=== PATIENT | male | born 1940 | race African-American/Black ===

== ENCOUNTER 2017-05-20 19:50 | Inpatient (IN) | payer MEDICARE, BC ==
[~2017-05-20] VITALS: Ht 167.6 cm; Wt 97.7 kg
[~2017-05-20 19:50] MED LIST: ACET500T98 PO; ALLO100T64 PO; ASPI81TA3 PO; ATRO2DRO OP; BEN25 PO; BISA-57 PO; CITA20TA11 PO; FINA5TAB PO; FLOMAX PO; FOLI-49 PO; GLUC1VIA7 IM; GLUCOSE GEL PO; HUM100VI8 SC; ISOS30TA PO; LISI-523 PO; MAGN400O4 PO; METO-429 PO; NITR0.4T32 SL; OXYC-281 PO; PANT40TA3 PO; SIMV5TAB31 PO; ZOLP5TAB PO
[2017-05-20 19:54] VITALS: Ht 167.6 cm; Wt 97.7 kg
[2017-05-20] MEDS ORDERED: CEFEPIME 2GM/50 ML (PMX) 50 ML IVPB STA (20:57)
[2017-05-20] MEDS ORDERED: SODIUM CHLORIDE 0.9% 1L BAG IV* STA (20:57)
[2017-05-20] MEDS ORDERED: VANCOMYCIN 1 GM (PMX) 250 ML IVPB ONE (21:00)
[2017-05-20] MEDS ORDERED: SIMV20TA PO (21:27)
[2017-05-20] MEDS ORDERED: TAMS-14 PO (21:27)
[2017-05-20] MEDS ORDERED: OMEP20CA16 PO (21:27)
[2017-05-20] MEDS ORDERED: LOSA25TA5 PO (21:27)
[2017-05-20] MEDS ORDERED: PRAM0.5T PO (21:29)
[2017-05-20] MEDS ORDERED: GABA300C16 PO (21:29)
[2017-05-20] MEDS ORDERED: FURO-110 PO (21:29)
[2017-05-20 21:31] LABS: EOSINOPHILS # 0.3 10^3/ul (0.0-0.5); EOSINOPHILS % 5.9 % (0.0-7.0); HEMATOCRIT 40.6 % (42.0-52.0); HEMOGLOBIN 13.6 g/dl (14.0-18.0); LYMPHOCYTES # 1.5 10^3/ul (0.8-2.9); LYMPHOCYTES % 36.3 % (15.0-51.0); MEAN CORPUSCULAR HEMOGLOBIN 31.8 pg (29.0-33.0); MEAN CORPUSCULAR HGB CONC 33.5 g/dl (32.0-37.0); MEAN CORPUSCULAR VOLUME 94.9 fl (82.0-101.0); MEAN PLATELET VOLUME 11.5 fl (7.4-10.4); MONOCYTE # 0.4 10^3/ul (0.3-0.9); MONOCYTES % 9.7 % (0.0-11.0); NEUTROPHILS % 46.9 % (39.0-77.0); PLATELET COUNT 139 10^3/UL (140-415); POSITIVE DIFF @See below; RED BLOOD COUNT 4.28 10^6/ul (4.70-6.10); RED CELL DISTRIBUTION WIDTH 13.2 % (11.5-14.5); WHITE BLOOD COUNT 4.2 10^3/ul (4.8-10.8)
[2017-05-20] MEDS ORDERED: HUM100IN4 SQ (21:34)
[2017-05-20] MEDS ORDERED: NOVO7030 SC (21:35)
[2017-05-20 21:37] LABS: ADD UMIC YES; UR ASCORBIC ACID NEGATIVE (NEGATIVE); UR BILIRUBIN (Dip) NEGATIVE (NEGATIVE); UR BLOOD (Dip) NEGATIVE (NEGATIVE); UR CLARITY SLIGHTLY CLOUDY (CLEAR); UR COLOR YELLOW (YELLOW); UR GLUCOSE (Dip) NEGATIVE (NEGATIVE); UR KETONES (Dip) NEGATIVE (NEGATIVE); UR LEUKOCYTE ESTERASE (Dip) NEGATIVE Leu/ul (NEGATIVE); UR NITRITE (Dip) NEGATIVE (NEGATIVE); UR RBC 1 /HPF (0-5); UR SPECIFIC GRAVITY (Dip) 1.014 (1.003-1.030); UR TOTAL PROTEIN (Dip) 1+ mg/dl (NEGATIVE); UR UROBILINOGEN (Dip) NEGATIVE (NEGATIVE)
[2017-05-20 21:50] LABS: INR 1.14; PROTIME 14.6 Sec (12.2-14.2); PT RATIO 1.1
[2017-05-20 21:51] LABS: PARTIAL THROMBOPLASTIN TIME 28.6 Sec (25.0-35.0)
--- NOTE | 2017-05-20 23:11 | RADRPT ---
PROCEDURE: XR Chest. CLINICAL INDICATION: Sepsis. TECHNIQUE: Single frontal chest x-ray. COMPARISON: 07/22/2013 FINDINGS: Patient is status post sternotomy. Heart is enlarged.. There is no congestive heart failure.. No fo chris infiltrate is seen. There is 4.2 mm nodular density at the right costophrenic angle not clearly present on prior studies. There is 2 mm unchanged nodular density right mid lung field. There is no pleural effusion. There is no pneumothorax. The osseous structures are unremarkable. IMPRESSION: 1. Cardiomegaly. 2. No CHF or focal infiltrate. 3. 4.2 mm nodular density right costophrenic angle not clearly evident on the prior studies. Unchan ged 2 mm nodular density in the right mid lung field. Lung nodule follow-up recommendations Solid nodules Nodule size: < 4 mm low risk patients: no follow-up needed high risk patients: follow-up at 12 months and if no change, no further imaging needed Nodule size: 4-6 mm low risk patients: follow-up at 12 months and if no change, no further imaging needed high risk patients: initial follow-up CT at 6-12 months and then at 18-24 months if no change Note: newly detected indeterminate nodule in persons 35 years of age or older. low risk patients: minimal or absent history of smoking and or other known risk factors high risk patients: history of smoking or of other known risk factors (e.g. first degree relative wi th lung cancer, or exposure to asbestos, radon, uranium) if a nodule up to 8 mm is partly solid or is ground glass further follow up is required after 24 mon ths to exclude possible slow growing adenocarcinoma (YOHANA) RPTAT: HMVK .Dontrell Webster MD, MD Date Time Electronically viewed and signed by .Dontrell Webster MD, MD on 05/20/2017 23:11 .K/
--- NOTE | 2017-05-20 23:13 | RADRPT ---
PROCEDURE: XR bilateral Foot. CLINICAL INDICATION: Trauma. TECHNIQUE: AP, lateral and oblique views of the bilateral foot was obtained. COMPARISON: There are no similar studies submitted for comparison. 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 N o destructive osseous changes are seen. No acute fracture or subluxation is identified. The right foot is without fracture or subluxation. No destructive osseous changes are seen. There is some soft tissue swelling throughout the right foot. Vascular calcifications are noted within both feet. IMPRESSION: No acute fracture or dislocation. No destructive osseous changes. Please note this does not exclude osteomyelitis. RPTAT: HIKT .Kodi Lopez MD, Date Time Electronically viewed and signed by .Kodi Lopez MD, on 05/20/2017 23:13 .T/
--- NOTE | 2017-05-20 23:17 | ERA ---
ER Documentation Chief Complaint Date/Time DATE: 05/20/17 TIME: 23:15 Chief Complaint diabetic left foot, right foot swelling HPI Patient is a 76-year-old male with coronary disease, hypertension, and diabetes who presents with right foot swelling and redness. He also has an ulcer to the top of the left fourth toe. He has an amputation prevention center patient and he called the [facility] and was told to come to the emergency department. His symptoms started on Tuesday but were worse today. He had subjective fever and sweating. His primary doctor is Dr. Sena Hernandez and his coating and baking operator is Dr. Merrill. ROS All systems reviewed and are negative except as per history of present illness. Medications Home Meds Reported Medications Insulin Isophan/Regular (Humulin 70/30) 100 Units/Ml Susp, 45 UNIT SC AC BREAKFAST DINNER, EA 05/20/17 Hum Insulin NPH/Reg Insulin Hm (Humulin 70/30 Kwikpen) 100 Unit/1 Ml Insuln.pen , 65 UNIT SQ AC BREAKFAST 05/20/17 Gabapentin* (Gabapentin*) 300 Mg Capsule, 300 MG PO TID, #90 CAP 05/20/17 Furosemide* (Lasix*) 20 Mg Tablet, 20 MG PO DAILY, TAB 05/20/17 Pramipexole* (Pramipexole*) 0.5 Mg Tablet, 0.5 MG PO BID, TAB 05/20/17 Losartan Potassium* (Losartan Potassium*) 25 Mg Tablet, 25 MG PO DAILY, TAB 05/20/17 Omeprazole* (Omeprazole*) 20 Mg Capsule.dr, 20 MG PO DAILY, #30 CAP 05/20/17 Simvastatin* (Zocor*) 20 Mg Tablet, 20 MG PO QHS, #30 TAB 05/20/17 Tamsulosin Hcl* (Flomax*) 0.4 Mg Cap.er.24h, 0.4 MG PO DAILY, CAP 05/20/17 Isosorbide Mononitrate* (Imdur*) 30 Mg Tab.sr.24h, 30 MG PO DAILY 07/22/13 Citalopram Hydrobromide* (Celexa*) 20 Mg Tablet, 20 MG PO DAILY 07/22/13 Aspirin (Aspirin) 81 Mg Chew, 81 MG PO DAILY 07/22/13 Allopurinol* (Zyloprim*) 100 Mg Tablet, 100 MG PO DAILY 07/22/13 Metoprolol Tartrate (LOPRESSOR) 50 Mg Tab, 50 MG PO BID 07/22/13 Discontinued Reported Medications Hum Insulin Nph/Reg Insulin Hm (Humulin 70-30 Vial) 100 Units/Ml Vial, 40 UNITS SC AC DINNER 07/22/13 Hum Insulin Nph/Reg Insulin Hm (Humulin 70-30 Vial) 100 Units/Ml Vial, 60 UNITS SC AC BREAKFAST 07/22/13 Folic Acid* (Folic Acid*) 1 Mg Tablet, 1 MG PO DAILY 07/22/13 [Flomax] No Conflict Check, 0.4 MG PO DAILY 07/22/13 Zolpidem Tartrate (Ambien Polo) 5 Mg Tablet, 5 MG PO HS 07/22/13 [Glucose Gel] No Conflict Check, PO PRN 07/22/13 Glucagon* (Glucagen*) 1 Mg Soln, 1 MG IM PRN 07/22/13 Acetaminophen (Tylenol) 500 Mg Tab, 500 MG PO Q 4HRS PRN 07/22/13 Oxycodone Hcl-Acetaminophen* (Percocet*) 1 Tab Tablet, 1 TAB PO PRN 07/22/13 Nitroglycerin* (Nitroglycerin* SL) 0.4 Mg Tab.subl, 0.4 MG SL PRN 07/22/13 Magnesium Hydroxide* (Milk Of Magnesia*) 400 Mg/5 Ml Oral.susp, 30 ML PO HS 07/22/13 Bisacodyl* (Dulcolax*) 5 Mg Tablet.dr, 10 MG PO Q 4HRS PRN 07/22/13 Diphenhydramine Hcl* (Benadryl*) 25 Mg Cap, 25 MG PO Q 4HRS PRN 07/22/13 Atropine Sulfate (Atropine Care) 2 Ml Drops, 2 ML OP BID 07/22/13 Simvastatin* (Zocor*) 5 Mg Tablet, 5 MG PO HS 07/22/13 Lisinopril* (Zestril*) 5 Mg Tablet, 5 MG PO DAILY 07/22/13 Pantoprazole* (Protonix*) 40 Mg Tablet.dr, 40 MG PO DAILY 07/22/13 Finasteride* (Proscar*) 5 Mg Tablet, 5 MG PO daily 07/22/13 Allergies Allergies: Coded Allergies: No Known Allergy (Verified , 05/20/17) PMhx/Soc History of Surgery: Yes (CABG,cholecystectomy) Anesthesia Reaction: Yes (shaking, trembling and confusion) Hx Neurological Disorder: No Hx Respiratory Disorders: No Hx Cardiac Disorders: Yes (htn, block artery2) Hx Psychiatric Problems: No Hx Miscellaneous Medical Probl: Yes (DM,diabetic neuropathy,retinopathy,PVD,L foot ulcer,osteomyelitis) Hx Alcohol Use: No Hx Substance Use: No Hx Tobacco Use: No Smoking Status: Former smoker FmHx Family History: diabetes Physical Exam Vitals Vital Signs Date Time Temp Pulse Resp B/P Pulse Ox O2 Delivery O2 Flow Rate FiO2 05/20/17 19:54 97.7 66 20 123/58 97 Physical Exam Const: No acute distress Head: Atraumatic Eyes: Normal Conjunctiva ENT: Normal External Ears, Nose and Mouth. Neck: Full range of motion..~ No meningismus. Resp: Clear to auscultation bilaterally Cardio: Regular rate and rhythm, no murmurs Abd: Soft, non tender, non distended. Normal bowel sounds Skin: Mild redness and swelling to the right foot, no abscess, small ulcer to the dorsum of the left fourth toe Back: No midline or flank tenderness Ext: No cyanosis, or edema Neur: Awake and alert Psych: Normal Mood and Affect Result Diagram: 05/20/17 2100 Results 24 hrs Laboratory Tests Test 05/20/17 21:00 White Blood Count 4.210^3/ul Red Blood Count 4.2810^6/ul Hemoglobin 13.6g/dl Hematocrit 40.6% Mean Corpuscular Volume 94.9fl Mean Corpuscular Hemoglobin 31.8pg Mean Corpuscular Hemoglobin Concent 33.5g/dl Red Cell Distribution Width 13.2% Platelet Count 97634^3/UL Mean Platelet Volume 11.5fl Neutrophils % 46.9% Lymphocytes % 36.3% Monocytes % 9.7% Eosinophils % 5.9% Basophils % 1.0% Nucleated Red Blood Cells % 0.0/100WBC Neutrophils # 2.010^3/ul Lymphocytes # 1.510^3/ul Monocytes # 0.410^3/ul Eosinophils # 0.310^3/ul Basophils # 0.010^3/ul Nucleated Red Blood Cells # 0.010^3/ul Prothrombin Time 14.6Sec Prothrombin Time Ratio 1.1 INR International Normalized Ratio 1.14 Activated Partial Thromboplast Time 28.6Sec Urine Color YELLOW Urine Clarity SLIGHTLY CLOUDY Urine pH 5.0 Urine Specific [place] 1.014 Urine Ketones NEGATIVEmg/dL Urine Nitrite NEGATIVEmg/dL Urine Bilirubin NEGATIVEmg/dL Urine Urobilinogen NEGATIVEmg/dL Urine Leukocyte Esterase NEGATIVELeu/ul Urine Microscopic RBC 1/HPF Urine Microscopic WBC 3/HPF Urine Hemoglobin NEGATIVEmg/dL Urine Glucose NEGATIVEmg/dL Urine Total Protein 1+mg/dl Lactic Acid Level 1.4mmol/L Current Medications Medications (Trade) Dose Ordered Sig/Angelique Route PRN Reason Start Time Stop Time Status Last Admin Dose Admin Sodium Chloride 3030 ml 3,030 ml BOLUS OVER 2 HOURS STAT IV* 05/20/17 20:57 05/20/17 20:59 DC 05/20/17 21:24 Cefepime HCl 50 ml @ 100 mls/hr ONCE STAT IVPB 05/20/17 20:57 05/20/17 21:26 DC 05/20/17 21:36 Vancomycin HCl (Vancocin) 250 ml @ 125 mls/hr ONCE ONCE IVPB 05/20/17 21:00 05/20/17 22:59 DC 05/20/17 21:38 Ondansetron HCl (Zofran Inj) 4 mg BRIDGE ORDER PRN IV NAUSEA AND/OR VOMITING 05/20/17 23:30 05/21/17 23:29 Acetaminophen (Tylenol Tab) 650 mg ER BRIDGE PRN PO MILD PAIN/FEVER 05/20/17 23:30 05/21/17 23:29 Procedures/MDM EKG read by me: Rate/Rhythm: First-degree AV block with bradycardia at a rate of 59 Intervals: Normal Impression: First-degree AV block with bradycardia Chest x-ray shows a 4.2 cm nodule per radiology. Patient is a 76-year-old male with diabetes who presents with cellulitis and diabetic foot ulcer. He will be given broad-spectrum antibiotics and fluids. I doubt sepsis at this time. The patient will be admitted to a medical surgical bed to the care of Dr. Sena Hernandez his primary doctor. The patient understands the plan and is okay for admission at this time. He would likely benefit from amputation prevention center consultation once he is admitted. Departure Diagnosis: Primary Impression: Cellulitis Qualified Code: L03.115 - Cellulitis of right lower extremity Additional Impressions: Diabetic foot ulcer Qualified Code: E13.621 - Diabetic ulcer of toe of left foot associated with diabetes mellitus of other type, unspecified ulcer stage Foot pain Qualified Code: M79.671 - Pain in both feet Condition: MARGAUX Garcia MD May 20, 2017 23:17
[2017-05-20 23:29] LABS: ALBUMIN 3.2 g/dl (3.3-4.9); BILIRUBIN,DIRECT 0.2 mg/dl (0.00-0.20); BILIRUBIN,INDIRECT 0.5 mg/dl (0-1.1); BILIRUBIN,TOTAL 0.7 mg/dl (0.2-1.3); CALCIUM 7.2 mg/dl (8.4-10.2); CREATININE 5.95 mg/dl (0.61-1.24); POTASSIUM 4.1 mmol/L (3.5-5.1); TOTAL PROTEIN 6.4 g/dl (6.1-8.1)
[2017-05-20] MEDS ORDERED: ACETAMINOPHEN 325 MG TAB PO PRN (23:30)
[2017-05-20] MEDS ORDERED: ONDANSETRON 4 MG INJ IV PRN (23:30)
[2017-05-20 23:58] VITALS: TEMP 98.1
[2017-05-21] VITALS (14 sets, daily range): BP systolic 118–160; BP diastolic 56–79; PULSE 58–94; RESP 18–20
[2017-05-21 00:08] LABS: TROPONIN-I 0.166 ng/ml (0.00-0.12)
[2017-05-21] MEDS: morphine 2 MG INJ IV PRN ×3 (01:08→23:24)
[2017-05-21] MEDS: SOD CHLORIDE 0.45% 1,000 ML IV SCH ×2 (01:33→13:55)
[2017-05-21] MEDS: INSULIN ASPART [NOVOLOG] 3 ML PEN SC SCH ×4 (07:42→20:36)
[2017-05-21 08:11] LABS: CALCIUM 8.4 mg/dl (8.4-10.2); CREATININE 2.03 mg/dl (0.61-1.24); POTASSIUM 4.8 mmol/L (3.5-5.1)
[2017-05-21] MEDS: CITALOPRAM 20 MG TAB PO SCH (08:19)
[2017-05-21] MEDS: METOPROLOL 50 MG TAB PO SCH ×2 (08:19→20:32)
[2017-05-21] MEDS: ASPIRIN 81 MG TAB PO SCH (08:19)
[2017-05-21] MEDS: ALLOPURINOL 100 MG TAB PO SCH (08:19)
[2017-05-21] MEDS: ISOSORBIDE MONONITRATE(SR)30 MG TAB PO SCH (08:20)
[2017-05-21] MEDS: INSULIN ASP PROT/ASPART (70/30) PEN SC SCH ×2 (08:46→17:50)
--- NOTE | 2017-05-21 09:10 | RADRPT ---
PROCEDURE: Renal US. CLINICAL INDICATION: Prostate cancer. Acute renal failure. TECHNIQUE: Multiple sonographic images of the kidneys were obtained. COMPARISON: No prior studies are available for comparison. FINDINGS: The kidneys are well visualized. The right kidney measures 11.0 cm. The left kidney measures 11.3 cm . Normal renal cortical echogenicity. No evidence of shadowing renal calculi. No hydronephrosis. No rmal appearance of the urinary bladder. Enlarged prostate gland measuring 5.4 x 5.0 x 5.6 cm. IMPRESSION: Normal renal ultrasound. Enlarged prostate gland. RPTAT:AAJJ Physician Luis A Date Time Electronically viewed and signed by Physician Luis A on 05/21/2017 09:10 /
--- NOTE | 2017-05-21 13:23 | HP ---
Date/Time of Note Date/Time of Note DATE: 05/21/17 TIME: 13:08 Assessment/Plan VTE Prophylaxis VTE Prophylaxis Intervention: LMWH Lines/Catheters IV Catheter Type (from Nrs): Peripheral IV Assessment/Plan Problems: (1) Sepsis Status: Acute Comment: Patient with fever and shaking chills and markedly elevated BUN/ Creatinine on admission suggestive of sepsis or systemic infection. Most likely source of infection is the right foot cellulitis but will check blood and urine cultures for other source of infections. (2) Acute on chronic renal failure Status: Acute Comment: improving with IVF hydration since ER admission. Continue gentle hydration , his baseline Creatinine is about 1.7. (3) Cellulitis Status: Acute Comment: Patient was given cefepime and vanco in ER with improvement in right foot pain and redness. Will consult ID for antibiotics regiment in this patient with history of osteomyelitis and urosepsis and c. diff colitis. Qualifiers: Site of cellulitis: extremity Site of cellulitis of extremity: lower extremity Laterality: right Qualified Code: L03.115 - Cellulitis of right lower extremity (4) Foot swelling Status: Acute Comment: Check venous doppler today . Keep patient on Lovenox for now. (5) Diabetic foot ulcer Status: Acute Comment: small ulcer on left 2nd toe, does not appear to be infected. Will consult amputation prevention center on Tuesday for wound care. Qualifiers: Diabetic foot ulcer location: toe Diabetes mellitus type: other specified (including KELLEE) Laterality: left Non-pressure ulcer stage: unspecified non- pressure ulcer stage Qualified Code: E13.621 - Diabetic ulcer of toe of left foot associated with diabetes mellitus of other type, unspecified ulcer stage HPI/ROS Admit Date/Time Admit Date/Time May 20, 2017 at 23:12 Hx of Present Illness 76 year old male with diabetes, coronary artery disease, chronic renal failure, prostate cancer and peripheral vascular disease s/p toe amputations has been having progressive left foot swelling for the past 3 days , then intermittent fever and shaking chills . Patient was brought to [facility] ER where he was noted to have right foot swelling and redness and acute renal failure as well as elevated troponins. He is admitted for sepsis, probably due to right foot cellulitis and renal failure and rule out [place]. ROS Constitutional: chills Eyes: no complaints ENT: no complaints Respiratory: no complaints Cardiovascular: no complaints Gastrointestinal: no complaints Genitourinary: no complaints Musculoskeletal: swelling Neurologic: no complaints Endocrine: no complaints Lymphatic: no complaints PMH/Family/Social Past Medical History Medical History: angina, cancer, coronary artery disease, diabetes, high cholesterol, hypertension, renal disease Past Surgical History Past Surgical Hx: cholecystectomy, coronary bypass surgery, other (Left 3rd and 4th toe amputation) Family History Significant Family History: diabetes Social History Alcohol Use: none Smoking Status: Never smoker Drug Use: none Exam/Review of Systems Vital Signs Vitals Vital Signs Date Time Temp Pulse Resp B/P Pulse Ox O2 Delivery O2 Flow Rate FiO2 05/21/17 12:23 98.0 67 18 118/56 98 05/21/17 00:20 Room Air Intake and Output 05/20/17 05/20/17 05/21/17 15:00 23:00 07:00 Intake Total 280 ml Output Total 400 ml Balance -120 ml Exam Constitutional: alert, oriented Psych: nl mood/affect Head: atraumatic, normocephalic Eyes: nl conjunctiva, nl sclera, other (mild exophthalmos) ENMT: nl external ears & nose Neck: non-tender, supple Respiratory: clear to auscultation, normal air movement Cardiovascular: regular rate and rhythm Gastrointestinal: non-tender, soft Musculoskeletal: other (Right foot and ankle with marked edema and mild warmth / redness. Left foot s/p 3rd and 4th toe amputation with 2mm ulceration on 2nd toe.) Labs Result Diagram: 05/20/17 2100 05/21/17 0712 Medications Medications Current Medications Sodium Chloride (1/2 NS) 1,000 ml @ 70 mls/hr [id number] IV Last administered on 05/21/17 01:33; Admin Dose 70 MLS/HR; Start 05/21/17 at 00:30 Allopurinol (Zyloprim) 100 mg DAILY PO Last administered on 05/21/17 08:19; Admin Dose 100 MG; Start 05/21/17 at 09:00 Aspirin (Aspirin) 81 mg DAILY PO Last administered on 05/21/17 08:19; Admin Dose 81 MG; Start 05/21/17 at 09:00 Citalopram Hydrobromide (Celexa) 20 mg DAILY PO Last administered on 05/21/17 08:19; Admin Dose 20 MG; Start 05/21/17 at 09:00 Isosorbide Mononitrate (Imdur) 30 mg DAILY PO Last administered on 05/21/17 08 :20; Admin Dose 30 MG; Start 05/21/17 at 09:00 Metoprolol Tartrate (Lopressor) 50 mg BID PO Last administered on 05/21/17 08: 19; Admin Dose 50 MG; Start 05/21/17 at 09:00 Tamsulosin HCl (Flomax) 0.4 mg DAILY@21 PO ; Start 05/21/17 at 21:00 Morphine Sulfate (morphine) 0.5 mg Q6H PRN IV PAIN Last administered on 01:08; Admin Dose 0.5 MG; Start 05/21/17 at 01:00 ANJEL GALLEGOS MD May 21, 2017 13:19
[2017-05-21] MEDS ORDERED: GLUCOSE GEL 15 GRAM TUBE PO PRN ×2 (14:00)
[2017-05-21] MEDS ORDERED: DEXTROSE 50% 50 ML SYRINGE IV PRN ×2 (14:00)
[2017-05-21] MEDS ORDERED: GLUCOSE GEL 15 GRAM TUBE BUCCAL PRN (14:00)
[2017-05-21] MEDS ORDERED: GLUCAGON 1 MG INJ IM PRN (14:00)
[2017-05-21] MEDS: ENOXAPARIN 30 MG/0.3 ML SYG SC SCH (14:00)
--- NOTE | 2017-05-21 15:22 | CONS ---
Date/Time of Note Date/Time of Note DATE: 05/21/17 TIME: 15:19 Assessment/Plan Assessment/Plan Additional Assessment/Plan Impression/Recommendation: # Probable cellulitis # Elevated troponin- trivial elevation without angina or dynamic ECG changes. Likely due to underlying issues and CKD without ACS. # Given numerous RF would consider pt having underlying CAD # PAD # DM # CKD/REGINO # HTN # Obesity >> await follow up troponin >> Echo >> cardiac meds >> will need to avoid ACEi/ARB and track Cr >> weight loss >> ASA >> Statin >> BP control Consultation Date/Type/Reason Admit Date/Time May 20, 2017 at 23:12 Type of Consultation: cardiology Reason for Consultation elevated troponin Eyes: no complaints ENT: no complaints Respiratory: no complaints Cardiovascular: no complaints Gastrointestinal: no complaints Genitourinary: no complaints Musculoskeletal: swelling Neurologic: no complaints Lymphatic: no complaints Psychological: nl mood/affect Past Medical History Medical History: angina, cancer, coronary artery disease, diabetes, high cholesterol, hypertension, renal disease Past Surgical History Past Surgical Hx: cholecystectomy, coronary bypass surgery, other (Left 3rd and 4th toe amputation) Social History Alcohol Use: none Smoking Status: Never smoker Drug Use: none Exam/Review of Systems Vital Signs Vitals Vital Signs Date Time Temp Pulse Resp B/P Pulse Ox O2 Delivery O2 Flow Rate FiO2 05/21/17 12:23 98.0 67 18 118/56 98 05/21/17 00:20 Room Air Intake and Output 05/20/17 05/20/17 05/21/17 15:00 23:00 07:00 Intake Total 280 ml Output Total 400 ml Balance -120 ml Exam Constitutional: alert, obese, oriented, well developed Psych: nl mood/affect, no complaints Head: normocephalic Eyes: EOMI, nl conjunctiva ENMT: nl external ears & nose Neck: non-tender, supple, No jvd Respiratory: clear to auscultation, normal air movement Cardiovascular: other (poor distal pulse, distal surgery WH), regular rate and rhythm, No S3 Gastrointestinal: non-tender, soft, No hepatomegaly, No splenomegaly Neurological: BRIDGE SAW OPERATOR II-XII intact Results Result Diagram: 05/20/17 2100 05/21/17 0712 Results 24 hrs Laboratory Tests Test 05/20/17 21:00 05/20/17 22:36 05/21/17 00:36 05/21/17 02:41 White Blood Count 4.2 L Red Blood Count 4.28 L Hemoglobin 13.6 L Hematocrit 40.6 L Mean Corpuscular Volume 94.9 Mean Corpuscular Hemoglobin 31.8 Mean Corpuscular Hemoglobin Concent 33.5 Red Cell Distribution Width 13.2 Platelet Count 139 L Mean Platelet Volume 11.5 H Neutrophils % 46.9 Lymphocytes % 36.3 Monocytes % 9.7 Eosinophils % 5.9 Basophils % 1.0 Nucleated Red Blood Cells % 0.0 Neutrophils # 2.0 Lymphocytes # 1.5 Monocytes # 0.4 Eosinophils # 0.3 Basophils # 0.0 Nucleated Red Blood Cells # 0.0 Prothrombin Time 14.6 H Prothrombin Time Ratio 1.1 INR International Normalized Ratio 1.14 Activated Partial Thromboplast Time 28.6 Urine Color YELLOW Urine Clarity SLIGHTLY CLOUDY A Urine pH 5.0 Urine Specific [place] 1.014 Urine Ketones NEGATIVE Urine Nitrite NEGATIVE Urine Bilirubin NEGATIVE Urine Urobilinogen NEGATIVE Urine Leukocyte Esterase NEGATIVE Urine Microscopic RBC 1 Urine Microscopic WBC 3 Urine Hemoglobin NEGATIVE Urine Glucose NEGATIVE Urine Total Protein 1+ H Lactic Acid Level 1.4 0.9 1.5 Sodium Level 138 Potassium Level 4.1 Chloride Level 110 Carbon Dioxide Level 14 L Anion Gap 18 H Blood Urea Nitrogen 81 H Creatinine 5.95 H Glucose Level 210 Calcium Level 7.2 L Total Bilirubin 0.7 Direct Bilirubin 0.20 Indirect Bilirubin 0.5 Aspartate Amino Transf (AST/SGOT) 105 H Alanine Aminotransferase (ALT/SGPT) 33 Alkaline Phosphatase 81 Troponin I 0.166 *H Total Protein 6.4 Albumin 3.2 L Globulin 3.20 Albumin/Globulin Ratio 1.00 Test 05/21/17 07:12 05/21/17 07:31 05/21/17 08:43 05/21/17 11:41 Erythrocyte Sedimentation Rate 12 Sodium Level 143 Potassium Level 4.8 Chloride Level 113 H Carbon Dioxide Level 24 # Anion Gap 11 # Blood Urea Nitrogen 38 #H Creatinine 2.03 #H Glucose Level 116 # Hemoglobin A1c 7.4 H Calcium Level 8.4 Troponin I 0.019 Bedside Glucose 118 114 170 Medications Medications Current Medications Sodium Chloride (1/2 NS) 1,000 ml @ 70 mls/hr [id number] IV Last administered on 05/21/17t 13:55; Admin Dose 70 MLS/HR; Start 05/21/17 at 00:30 Allopurinol (Zyloprim) 100 mg DAILY PO Last administered on 05/21/17 08:19; Admin Dose 100 MG; Start 05/21/17 at 09:00 Aspirin (Aspirin) 81 mg DAILY PO Last administered on 05/21/17 08:19; Admin Dose 81 MG; Start 05/21/17 at 09:00 Citalopram Hydrobromide (Celexa) 20 mg DAILY PO Last administered on 05/21/17 08:19; Admin Dose 20 MG; Start 05/21/17 at 09:00 Isosorbide Mononitrate (Imdur) 30 mg DAILY PO Last administered on 05/21/17 08 :20; Admin Dose 30 MG; Start 05/21/17 at 09:00 Metoprolol Tartrate (Lopressor) 50 mg BID PO Last administered on 05/21/17 08: 19; Admin Dose 50 MG; Start 05/21/17 at 09:00 Tamsulosin HCl (Flomax) 0.4 mg DAILY@21 PO ; Start 05/21/17 at 21:00 Morphine Sulfate (morphine) 0.5 mg Q6H PRN IV PAIN Last administered on 01:08; Admin Dose 0.5 MG; Start 05/21/17 at 01:00 Enoxaparin Sodium (Lovenox) 30 mg DAILY SC Last administered on 05/21/17 14:00 ; Admin Dose 30 MG; Start 05/21/17 at 14:00 Miscellaneous Information 1 ea NOTE XX ; Start 05/21/17 at 14:00 Glucose (Glutose) 15 gm Q15M PRN PO DECREASED GLUCOSE; Start 05/21/17 at 14:00 Glucose (Glutose) 22.5 gm Q15M PRN PO DECREASED GLUCOSE; Start 05/21/17 at 14: 00 Dextrose (D50w Syringe) 25 ml Q15M PRN IV DECREASED GLUCOSE; Start 05/21/17 at 14:00 Dextrose (D50w Syringe) 50 ml Q15M PRN IV DECREASED GLUCOSE; Start 05/21/17 at 14:00 Glucagon (Glucagen) 1 mg Q15M PRN IM DECREASED GLUCOSE; Start 05/21/17 at 14:00 Glucose (Glutose) 15 gm Q15M PRN BUCCAL DECREASED GLUCOSE; Start 05/21/17 at 14 :00 J LUIS KAHN MD May 21, 2017 15:22
--- NOTE | 2017-05-21 15:42 | RADRPT ---
PROCEDURE: US Lower extremity Venous. CLINICAL INDICATION: Right leg edema TECHNIQUE: Multiple sonographic images of the right lower extremity deep venous system was obtaine d utilizing grayscale, color-flow, compressive sonography and doppler imaging with augmentation. Th e images were reviewed on a PACS workstation. COMPARISON: None. FINDINGS: There is normal compressibility and flow within the right common femoral, femoral, posterior tibial, peroneal and popliteal veins. RPTAT: AA IMPRESSION: No sonographic evidence for deep venous thrombosis. .Bryant Rodriguez MD, MD Date Time Electronically viewed and signed by .Bryant Rodriguez MD, on 05/21/2017 15:41 .S/
[2017-05-21] MEDS: ATORVASTATIN 40 MG TAB PO SCH (20:31)
[2017-05-21] MEDS: TAMSULOSIN (SR) 0.4 MG CAP PO SCH (20:32)
[2017-05-22] VITALS (14 sets, daily range): BP systolic 129–194; BP diastolic 56–84; PULSE 47–72; RESP 18–19
[2017-05-22] MEDS: SOD CHLORIDE 0.45% 1,000 ML IV SCH (04:58)
[2017-05-22] MEDS: morphine 2 MG INJ IV PRN (07:20)
[2017-05-22] MEDS: INSULIN ASPART [NOVOLOG] 3 ML PEN SC SCH ×4 (07:55→20:50)
[2017-05-22] MEDS: ALLOPURINOL 100 MG TAB PO SCH (08:19)
[2017-05-22] MEDS: ASPIRIN 81 MG TAB PO SCH (08:19)
[2017-05-22] MEDS: CITALOPRAM 20 MG TAB PO SCH (08:20)
[2017-05-22] MEDS: METOPROLOL 50 MG TAB PO SCH (08:20)
[2017-05-22] MEDS: ISOSORBIDE MONONITRATE(SR)30 MG TAB PO SCH (08:20)
[2017-05-22] MEDS: ENOXAPARIN 30 MG/0.3 ML SYG SC SCH (08:22)
[2017-05-22] MEDS: INSULIN ASP PROT/ASPART (70/30) PEN SC SCH ×2 (08:23→17:44)
[2017-05-22] MEDS ORDERED: FUROSEMIDE 20 MG INJ IV ONE (09:30)
[2017-05-22 09:40] LABS: BASOPHILS % 0.9 % (0.0-2.0); EOSINOPHILS # 0.3 10^3/ul (0.0-0.5); HEMATOCRIT 38.8 % (42.0-52.0); LYMPHOCYTES % 29.6 % (15.0-51.0); MEAN CORPUSCULAR HEMOGLOBIN 31.8 pg (29.0-33.0); MEAN CORPUSCULAR HGB CONC 33.5 g/dl (32.0-37.0); MEAN CORPUSCULAR VOLUME 94.9 fl (82.0-101.0); MEAN PLATELET VOLUME 11.9 fl (7.4-10.4); MONOCYTE # 0.5 10^3/ul (0.3-0.9); MONOCYTES % 14.1 % (0.0-11.0); NEUTROPHIL # 1.6 10^3/ul (1.6-7.5); NEUTROPHILS % 46.8 % (39.0-77.0); PLATELET COUNT 122 10^3/UL (140-415); RED BLOOD COUNT 4.09 10^6/ul (4.70-6.10); RED CELL DISTRIBUTION WIDTH 13.3 % (11.5-14.5); WHITE BLOOD COUNT 3.5 10^3/ul (4.8-10.8)
[2017-05-22 09:50] LABS: CALCIUM 9.2 mg/dl (8.4-10.2); CREATININE 1.72 mg/dl (0.61-1.24); POTASSIUM 4.9 mmol/L (3.5-5.1)
--- NOTE | 2017-05-22 09:50 | RADRPT ---
PROCEDURE: XR Chest. CLINICAL INDICATION: Dyspnea TECHNIQUE: Anterior chest x-ray. COMPARISON: 07/22/2013 FINDINGS: 4 mm calcified nodule in the right upper lung zone is unchanged from previous exam and is likely layo ign. Median sternotomy wires are unchanged from previous exam. The lungs are clear. No pleural effusion identified. There is no evidence of pneumothorax. There is atherosclerotic calcification of the aorta. The cardiomediastinal silhouette is unremarkabl e. The soft tissues are normal. Osseous structures are unremarkable. IMPRESSION: 1. No acute disease is seen in the chest. No significant change from previous exam. RPTAT: QQ .Shankar Dickey MD, MD Date Time Electronically viewed and signed by .Shankar Dickey MD, on 05/22/2017 09:50 .M/
--- NOTE | 2017-05-22 14:15 | CONS ---
Date/Time of Note Date/Time of Note DATE: 05/22/17 TIME: 14:11 Assessment/Plan Assessment/Plan Additional Assessment/Plan Impression/Recommendation: # Probable cellulitis # Elevated troponin- trivial elevation without angina or dynamic ECG changes. Likely due to underlying issues and CKD without ACS. # Given numerous RF would consider pt having underlying CAD # PAD # DM # CKD/REGINO- improving Cr # HTN # Obesity >> Echo >> Optimize cardiac meds >> will need to avoid ACEi/ARB and track Cr however will likely restart tomorrow if Cr stable after diuresis >> weight loss >> ASA >> Statin >> BP control Consultation Date/Type/Reason Admit Date/Time May 20, 2017 at 23:12 Initial Consult Date Type of Consultation: cardiology 24 HR Interval Summary Free Text/Dictation Overall pt has been doing well. He has not had any fevers. He has an appt with wound care this coming week as well. No Cp or palpitations. Mild SOB Exam/Review of Systems Vital Signs Vitals Vital Signs Date Time Temp Pulse Resp B/P Pulse Ox O2 Delivery O2 Flow Rate FiO2 05/22/17 13:41 98.0 83 18 148/72 98 05/21/17 00:20 Room Air Intake and Output 05/21/17 05/21/17 05/22/17 15:00 23:00 07:00 Intake Total 1940 ml 1480 ml Output Total 1700 ml 800 ml Balance 240 ml 680 ml Exam Constitutional: alert, oriented, well developed Head: normocephalic Eyes: nl conjunctiva ENMT: nl external ears & nose Neck: jvd (mod elevated) Respiratory: clear to auscultation, diminished breath sounds Cardiovascular: edema (mild B LE pitting edema), nl pulses, regular rate and rhythm Gastrointestinal: soft Musculoskeletal: nl extremities to inspection Neurological: [employer] II-XII intact Results Result Diagram: 05/22/17 0542 05/22/17 0542 Results 24 hrs Laboratory Tests Test 05/21/17 14:34 05/21/17 16:52 05/21/17 20:35 05/22/17 05:42 Troponin I < 0.012 Bedside Glucose 71 89 White Blood Count 3.5 L Red Blood Count 4.09 L Hemoglobin 13.0 L Hematocrit 38.8 L Mean Corpuscular Volume 94.9 Mean Corpuscular Hemoglobin 31.8 Mean Corpuscular Hemoglobin Concent 33.5 Red Cell Distribution Width 13.3 Platelet Count 122 L Mean Platelet Volume 11.9 H Neutrophils % 46.8 Lymphocytes % 29.6 Monocytes % 14.1 H Eosinophils % 8.0 H Basophils % 0.9 Nucleated Red Blood Cells % 0.0 Neutrophils # 1.6 Lymphocytes # 1.0 Monocytes # 0.5 Eosinophils # 0.3 Basophils # 0.0 Nucleated Red Blood Cells # 0.0 Sodium Level 142 Potassium Level 4.9 Chloride Level 110 Carbon Dioxide Level 27 Anion Gap 10 Blood Urea Nitrogen 30 H Creatinine 1.72 H Glucose Level 94 Calcium Level 9.2 Test 05/22/17 05:46 05/22/17 08:17 05/22/17 11:59 Troponin I 0.021 Bedside Glucose 121 108 Medications Medications Current Medications Allopurinol (Zyloprim) 100 mg DAILY PO Last administered on 05/22/17 08:19; Admin Dose 100 MG; Start 05/21/17 at 09:00 Aspirin (Aspirin) 81 mg DAILY PO Last administered on 05/22/17 08:19; Admin Dose 81 MG; Start 05/21/17 at 09:00 Citalopram Hydrobromide (Celexa) 20 mg DAILY PO Last administered on 05/22/17 08:20; Admin Dose 20 MG; Start 05/21/17 at 09:00 Isosorbide Mononitrate (Imdur) 30 mg DAILY PO Last administered on 05/22/17 08 :20; Admin Dose 30 MG; Start 05/21/17 at 09:00 Metoprolol Tartrate (Lopressor) 50 mg BID PO Last administered on 05/22/17 08: 20; Admin Dose 50 MG; Start 05/21/17 at 09:00 Tamsulosin HCl (Flomax) 0.4 mg DAILY@21 PO Last administered on 05/21/17 20:32 ; Admin Dose 0.4 MG; Start 05/21/17 at 21:00 Morphine Sulfate (morphine) 0.5 mg Q6H PRN IV PAIN Last administered on 07:20; Admin Dose 0.5 MG; Start 05/21/17 at 01:00 Enoxaparin Sodium (Lovenox) 30 mg DAILY SC Last administered on 05/22/17 08:22 ; Admin Dose 30 MG; Start 05/21/17 at 14:00 Miscellaneous Information 1 ea NOTE XX ; Start 05/21/17 at 14:00 Glucose (Glutose) 15 gm Q15M PRN PO DECREASED GLUCOSE; Start 05/21/17 at 14:00 Glucose (Glutose) 22.5 gm Q15M PRN PO DECREASED GLUCOSE; Start 05/21/17 at 14: 00 Dextrose (D50w Syringe) 25 ml Q15M PRN IV DECREASED GLUCOSE; Start 05/21/17 at 14:00 Dextrose (D50w Syringe) 50 ml Q15M PRN IV DECREASED GLUCOSE; Start 05/21/17 at 14:00 Glucagon (Glucagen) 1 mg Q15M PRN IM DECREASED GLUCOSE; Start 05/21/17 at 14:00 Glucose (Glutose) 15 gm Q15M PRN BUCCAL DECREASED GLUCOSE; Start 05/21/17 at 14 :00 Atorvastatin Calcium (Lipitor) 40 mg HS PO Last administered on 05/21/17t 20:31 ; Admin Dose 40 MG; Start 05/21/17 at 21:00 J LUIS KAHN MD May 22, 2017 14:15
[2017-05-22] MEDS ORDERED: VANCOMYCIN IV PER PHARMACY XX SCH (14:30)
[2017-05-22] MEDS ORDERED: CEFEPIME 1GM/50 ML (PMX) 50 ML IVPB SCH (15:00)
--- NOTE | 2017-05-22 15:22 | CONS ---
Date/Time of Note Date/Time of Note DATE: 05/22/17 TIME: 15:21 Assessment/Plan Assessment/Plan Chief Complaint/Hosp Course Patient is alert denies pain looks comfortable, he is afebrile Temperature 98 pulse 57 respirations 18 blood pressure 148/72 saturation 98% WBC 3.5 H&H 13 and 38.8 platelets 122 no shift BUN 30 creatinine 1.72 Antimicrobials: Vancomycin cefepime Microbiology: Blood and urine culture negative Diagnostics: Ultrasound of right lower extremity revealed no DVT Chest x-ray this morning revealed no acute disease Renal ultrasound was normal with enlarged prostate gland Physical examination: This is a chronically ill-appearing elderly man who is alert in no distress. Head atraumatic normocephalic sclerae nonicteric. Neck is supple chest rise symmetrical breath sounds clear. Heart: S1-S2. 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 Right foot swelling, no evidence of infection 2. Acute on chronic kidney disease 3. Diabetes 4. Legally blind 5. History of CABG in 2010 Plan: Patient is stable, right lower extremity does not look infected, we are going to discontinue antibiotics and observe him. Problems: Consultation Date/Type/Reason Admit Date/Time May 20, 2017 at 23:12 Initial Consult Date Type of Consultation: ID Exam/Review of Systems Vital Signs Vitals Vital Signs Date Time Temp Pulse Resp B/P Pulse Ox O2 Delivery O2 Flow Rate FiO2 05/22/17 13:41 98.0 83 18 148/72 98 05/21/17 00:20 Room Air Intake and Output 05/21/17 05/21/17 05/22/17 15:00 23:00 07:00 Intake Total 1940 ml 1480 ml Output Total 1700 ml 800 ml Balance 240 ml 680 ml Results Result Diagram: 05/22/17 0542 05/22/17 0542 Results 24 hrs Laboratory Tests Test 05/21/17 16:52 05/21/17 20:35 05/22/17 05:42 05/22/17 05:46 Bedside Glucose 71 89 White Blood Count 3.5 L Red Blood Count 4.09 L Hemoglobin 13.0 L Hematocrit 38.8 L Mean Corpuscular Volume 94.9 Mean Corpuscular Hemoglobin 31.8 Mean Corpuscular Hemoglobin Concent 33.5 Red Cell Distribution Width 13.3 Platelet Count 122 L Mean Platelet Volume 11.9 H Neutrophils % 46.8 Lymphocytes % 29.6 Monocytes % 14.1 H Eosinophils % 8.0 H Basophils % 0.9 Nucleated Red Blood Cells % 0.0 Neutrophils # 1.6 Lymphocytes # 1.0 Monocytes # 0.5 Eosinophils # 0.3 Basophils # 0.0 Nucleated Red Blood Cells # 0.0 Sodium Level 142 Potassium Level 4.9 Chloride Level 110 Carbon Dioxide Level 27 Anion Gap 10 Blood Urea Nitrogen 30 H Creatinine 1.72 H Glucose Level 94 Calcium Level 9.2 Troponin I 0.021 Test 05/22/17 08:17 05/22/17 11:59 Bedside Glucose 121 108 Medications Medications Current Medications Allopurinol (Zyloprim) 100 mg DAILY PO Last administered on 05/22/17 08:19; Admin Dose 100 MG; Start 05/21/17 at 09:00 Aspirin (Aspirin) 81 mg DAILY PO Last administered on 05/22/17 08:19; Admin Dose 81 MG; Start 05/21/17 at 09:00 Citalopram Hydrobromide (Celexa) 20 mg DAILY PO Last administered on 05/22/17 08:20; Admin Dose 20 MG; Start 05/21/17 at 09:00 Isosorbide Mononitrate (Imdur) 30 mg DAILY PO Last administered on 05/22/17 08 :20; Admin Dose 30 MG; Start 05/21/17 at 09:00 Metoprolol Tartrate (Lopressor) 50 mg BID PO Last administered on 05/22/17 08: 20; Admin Dose 50 MG; Start 05/21/17 at 09:00 Tamsulosin HCl (Flomax) 0.4 mg DAILY@21 PO Last administered on 05/21/17 20:32 ; Admin Dose 0.4 MG; Start 05/21/17 at 21:00 Morphine Sulfate (morphine) 0.5 mg Q6H PRN IV PAIN Last administered on 07:20; Admin Dose 0.5 MG; Start 05/21/17 at 01:00 Enoxaparin Sodium (Lovenox) 30 mg DAILY SC Last administered on 05/22/17 08:22 ; Admin Dose 30 MG; Start 05/21/17 at 14:00 Miscellaneous Information 1 ea NOTE XX ; Start 05/21/17 at 14:00 Glucose (Glutose) 15 gm Q15M PRN PO DECREASED GLUCOSE; Start 05/21/17 at 14:00 Glucose (Glutose) 22.5 gm Q15M PRN PO DECREASED GLUCOSE; Start 05/21/17 at 14: 00 Dextrose (D50w Syringe) 25 ml Q15M PRN IV DECREASED GLUCOSE; Start 05/21/17 at 14:00 Dextrose (D50w Syringe) 50 ml Q15M PRN IV DECREASED GLUCOSE; Start 05/21/17 at 14:00 Glucagon (Glucagen) 1 mg Q15M PRN IM DECREASED GLUCOSE; Start 05/21/17 at 14:00 Glucose (Glutose) 15 gm Q15M PRN BUCCAL DECREASED GLUCOSE; Start 05/21/17 at 14 :00 Atorvastatin Calcium (Lipitor) 40 mg HS PO Last administered on 05/21/17 20:31 ; Admin Dose 40 MG; Start 05/21/17 at 21:00 Hydralazine HCl (Apresoline) 25 mg TID PO ; Start 05/22/17 at 21:00; Status UNV Gabapentin (Neurontin) 300 mg TID PO ; Start 05/22/17 at 21:00 Losartan Potassium (Cozaar) 25 mg DAILY PO ; Start 05/23/17 at 09:00 Pramipexole (Mirapex) 0.5 mg BID PO ; Start 05/22/17 at 21:00 Pantoprazole 40 mg 40 mg DAILY@06 PO ; Start 05/23/17 at 06:00 Cefepime HCl 50 ml @ 100 mls/hr Q24H IVPB Last administered on 05/22/17 15:16 ; Admin Dose 100 MLS/HR; Start 05/22/17 at 15:00 Vancomycin HCl 750 mg/Sodium Chloride 150 ml @ 100 mls/hr Q24H IVPB ; Start at 17:00 Vancomycin HCl/ Sodium Chloride (Vancocin/NS) 250 ml @ 83.333 mls/ hr ONCE ONCE IVPB ; Start 05/22/17 at 16:00; Stop 05/22/17 at 18:59 MURPHY WILKES NP May 22, 2017 15:22
[2017-05-22] MEDS ORDERED: VANCOMYCIN 1.5 GM in SOD CHLORIDE 0.9% 250 ML IVPB ONE (16:00)
[2017-05-22] MEDS: FUROSEMIDE 20 MG INJ IV SCH (16:34)
--- NOTE | 2017-05-22 18:27 | PN ---
Date/Time of Note Date/Time of Note DATE: 05/22/17 TIME: 18:02 Assessment/Plan VTE Prophylaxis VTE Prophylaxis Intervention: LMWH Lines/Catheters IV Catheter Type (from Nrs): Peripheral IV Assessment/Plan Problems: (1) Acute on chronic renal failure Status: Resolved Comment: Improved back to baseline chronic renal disease. Will d/c IVF. Resume lasix, losartan, celexa, statin, and PPI and follow bmp . (2) Foot swelling Status: Acute Comment: Venous doppler negative for DVT. Edema improving with diuresis, may have been due to ARF. Stop antibiotics and continue to monitor. (3) Sepsis Status: Resolved Comment: No fever or chills now. Await blood and urine culture result. (4) Hypertension Status: Chronic Comment: Still has episodic increased bp on metoprolol. Will check 24 hour metanephrines today but hopefully bp control will be better once patient starts back on losartan tomorrow. Hydralazine is causing nausea and clonidine may exacerbate his ongoing bradycardia form metoprolol so will use short acting nifedipine for breakthrough elevation in bp (5) Bradycardia Status: Chronic Comment: related to metoprolol. Asymptomatic now. Subjective 24 Hr Interval Summary Free Text/Dictation Patient had nausea after receiving hydralazine today, otherwise feels better. No chills , no feet pain. Exam/Review of Systems Vital Signs Vitals Vital Signs Date Time Temp Pulse Resp B/P Pulse Ox O2 Delivery O2 Flow Rate FiO2 05/22/17 16:45 98.0 59 18 154/75 98 05/21/17 00:20 Room Air Intake and Output 05/21/17 05/21/17 05/22/17 15:00 23:00 07:00 Intake Total 1940 ml 1480 ml Output Total 1700 ml 800 ml Balance 240 ml 680 ml Exam Constitutional: alert, oriented Head: atraumatic, normocephalic Eyes: nl conjunctiva, nl sclera ENMT: mucosa pink and moist, nl external ears & nose Respiratory: clear to auscultation, normal air movement Cardiovascular: other (Bradycardic, regular rhythm) Gastrointestinal: non-tender, soft Extremities: other (trace nonpitting edema of bilateral ankles, no erythema.) Results Result Diagram: 05/22/17 0542 05/22/17 0542 Results 24 hrs Laboratory Tests Test 05/21/17 20:35 10/8/17 05:42 05/22/17 05:46 05/22/17 08:17 Bedside Glucose 89 121 White Blood Count 3.5 L Red Blood Count 4.09 L Hemoglobin 13.0 L Hematocrit 38.8 L Mean Corpuscular Volume 94.9 Mean Corpuscular Hemoglobin 31.8 Mean Corpuscular Hemoglobin Concent 33.5 Red Cell Distribution Width 13.3 Platelet Count 122 L Mean Platelet Volume 11.9 H Neutrophils % 46.8 Lymphocytes % 29.6 Monocytes % 14.1 H Eosinophils % 8.0 H Basophils % 0.9 Nucleated Red Blood Cells % 0.0 Neutrophils # 1.6 Lymphocytes # 1.0 Monocytes # 0.5 Eosinophils # 0.3 Basophils # 0.0 Nucleated Red Blood Cells # 0.0 Sodium Level 142 Potassium Level 4.9 Chloride Level 110 Carbon Dioxide Level 27 Anion Gap 10 Blood Urea Nitrogen 30 H Creatinine 1.72 H Glucose Level 94 Calcium Level 9.2 Troponin I 0.021 Test 05/22/17 11:59 05/22/17 16:52 05/22/17 17:39 Bedside Glucose 108 122 121 Medications Medications Current Medications Allopurinol (Zyloprim) 100 mg DAILY PO Last administered on 05/22/17 08:19; Admin Dose 100 MG; Start 05/21/17 at 09:00 Aspirin (Aspirin) 81 mg DAILY PO Last administered on 05/22/17 08:19; Admin Dose 81 MG; Start 05/21/17 at 09:00 Citalopram Hydrobromide (Celexa) 20 mg DAILY PO Last administered on 05/22/17 08:20; Admin Dose 20 MG; Start 05/21/17 at 09:00 Isosorbide Mononitrate (Imdur) 30 mg DAILY PO Last administered on 05/22/17 08 :20; Admin Dose 30 MG; Start 05/21/17 at 09:00 Metoprolol Tartrate (Lopressor) 50 mg BID PO Last administered on 05/22/17 08: 20; Admin Dose 50 MG; Start 05/21/17 at 09:00 Tamsulosin HCl (Flomax) 0.4 mg DAILY@21 PO Last administered on 05/21/17 20:32 ; Admin Dose 0.4 MG; Start 05/21/17 at 21:00 Morphine Sulfate (morphine) 0.5 mg Q6H PRN IV PAIN Last administered on 07:20; Admin Dose 0.5 MG; Start 05/21/17 at 01:00 Enoxaparin Sodium (Lovenox) 30 mg DAILY SC Last administered on 05/22/17 08:22 ; Admin Dose 30 MG; Start 05/21/17 at 14:00 Miscellaneous Information 1 ea NOTE XX ; Start 05/21/17 at 14:00 Glucose (Glutose) 15 gm Q15M PRN PO DECREASED GLUCOSE; Start 05/21/17 at 14:00 Glucose (Glutose) 22.5 gm Q15M PRN PO DECREASED GLUCOSE; Start 05/21/17 at 14: 00 Dextrose (D50w Syringe) 25 ml Q15M PRN IV DECREASED GLUCOSE; Start 05/21/17 at 14:00 Dextrose (D50w Syringe) 50 ml Q15M PRN IV DECREASED GLUCOSE; Start 05/21/17 at 14:00 Glucagon (Glucagen) 1 mg Q15M PRN IM DECREASED GLUCOSE; Start 05/21/17 at 14:00 Glucose (Glutose) 15 gm Q15M PRN BUCCAL DECREASED GLUCOSE; Start 05/21/17 at 14 :00 Atorvastatin Calcium (Lipitor) 40 mg HS PO Last administered on 05/21/17 20:31 ; Admin Dose 40 MG; Start 05/21/17 at 21:00 Hydralazine HCl (Apresoline) 25 mg TID PO Last administered on 05/22/17 16:34 ; Admin Dose 25 MG; Start 05/22/17 at 16:00 Gabapentin (Neurontin) 300 mg TID PO ; Start 05/22/17 at 21:00 Losartan Potassium (Cozaar) 25 mg DAILY PO ; Start 05/23/17 at 09:00 Pramipexole (Mirapex) 0.5 mg BID PO ; Start 05/22/17 at 21:00 Pantoprazole 40 mg 40 mg DAILY@06 PO ; Start 05/23/17 at 06:00 Vancomycin HCl/ Sodium Chloride (Vancocin/NS) 250 ml @ 83.333 mls/ hr ONCE ONCE IVPB Last administered on 05/22/17 17:13; Admin Dose 83.333 MLS/HR; Start 05/22/17 at 16:00; Stop 05/22/17 at 18:59 ANJEL GALLEGOS MD May 22, 2017 18:14
[2017-05-22] MEDS ORDERED: NIFEdipine 10 MG CAP PO PRN (18:30)
[2017-05-22] MEDS: ATORVASTATIN 40 MG TAB PO SCH (20:42)
[2017-05-22] MEDS: GABAPENTIN 300 MG CAP PO SCH (20:42)
[2017-05-22] MEDS: TAMSULOSIN (SR) 0.4 MG CAP PO SCH (20:42)
[2017-05-22] MEDS: PRAMIPEXOLE 0.25 MG TAB PO SCH (20:43)
[2017-05-22] MEDS ORDERED: ATORVASTATIN 10 MG TAB PO SCH (21:00)
[2017-05-23] VITALS (10 sets, daily range): BP systolic 127–142; BP diastolic 58–72; PULSE 66–86; RESP 17–20
--- NOTE | 2017-05-23 02:53 | CONS ---
DATE OF ADMISSION: 05/20/2017 DATE OF CONSULTATION: 05/21/2017 INFECTIOUS DISEASE CONSULTATION REASON FOR CONSULTATION: Antibiotic management. HISTORY OF PRESENT ILLNESS: Keyon Plascencia is a 76-year-old male with history of coronary artery d isease, who comes in now with cellulitis and is being seen for antibiotic management. Past problems include: 1. Coronary artery disease. 2. Hypertension. 3. Adult-onset diabetes mellitus. 4. Diabetic foot with right foot swelling, redness and an ulceration on the top of the left 4th toe . He was [facility], was told to go to the emergency room. 5. Other problems include status post coronary artery bypass graft. 6. Status post cholecystectomy. 7. History of allergic reaction to anesthesia with shaking, trembling and confusion. 8. Diabetic neuropathy. 9. Diabetic retinopathy. 10. Peripheral vascular disease. 11. Left foot ulcer with osteomyelitis. 12. History of smoking in the past. PAST MEDICAL HISTORY: Operations as outlined. FAMILY HISTORY: Noncontributory. SOCIAL HISTORY: As noted, he is a former smoker. He does not drink or abuse drugs. ALLERGIES: NONE TO PENICILLIN, SULFA OR FOODS. MEDICATIONS: Per chart. REVIEW OF SYSTEMS: As per HPI. PHYSICAL EXAMINATION: GENERAL: The patient is a chronically ill-appearing male who is awake, responsive, in no acute dist ress. VITAL SIGNS: Stable. He is afebrile. SKIN: Without generalized rash. He has redness and swelling of the right foot with no abscess. HEENT: Within normal limits. NECK: Supple. LYMPH NODES: None palpable. CHEST: Decreased breath sounds at the bases. HEART: Without murmur or gallop. ABDOMEN: Soft, nontender, nondistended, without organosplenomegaly or masses. EXTREMITIES: Without cyanosis, clubbing or edema. RECTAL AND GENITAL: Deferred. NEUROLOGIC: No focal neurological abnormalities. LABORATORY DATA: White count of 4.2, H and H of 13.6 and 40.6, platelet count 139,000. IMPRESSION AND PLAN: The patient was started on vancomycin and cefepime. Chest x-ray shows a 4.2 c m nodule per Radiology. The patient is a diabetic who presents with cellulitis and a diabetic foot ulcer. He probably would benefit from podiatric reevaluation. We will continue him on his current regimen of vancomycin and cefepime. I will dictate my findings to Dr. Gallegos and Dr. Merrill. Dictated By: FRANTZ MARRERO MD, JD/ELDA Conf#: [id number] [facility]#: [id number] CC: ANJEL GALLEGOS MD; [place];*EndCC*
[2017-05-23] MEDS: FUROSEMIDE 20 MG INJ IV SCH ×2 (05:14→18:33)
[2017-05-23] MEDS ORDERED: PANTOPRAZOLE (EC) 40 MG TAB PO SCH (06:00)
[2017-05-23] MEDS ORDERED: ONDANSETRON 4 MG INJ IV SCH (06:06)
[2017-05-23 06:33] LABS: BASOPHILS % 0.8 % (0.0-2.0); EOSINOPHILS # 0.3 10^3/ul (0.0-0.5); EOSINOPHILS % 7.4 % (0.0-7.0); HEMATOCRIT 42.4 % (42.0-52.0); HEMOGLOBIN 14.1 g/dl (14.0-18.0); LYMPHOCYTES # 0.9 10^3/ul (0.8-2.9); LYMPHOCYTES % 24.8 % (15.0-51.0); MEAN CORPUSCULAR HEMOGLOBIN 30.5 pg (29.0-33.0); MEAN CORPUSCULAR HGB CONC 33.3 g/dl (32.0-37.0); MEAN CORPUSCULAR VOLUME 91.6 fl (82.0-101.0); MEAN PLATELET VOLUME 11.4 fl (7.4-10.4); MONOCYTE # 0.5 10^3/ul (0.3-0.9); MONOCYTES % 12.7 % (0.0-11.0); NEUTROPHILS % 54.3 % (39.0-77.0); PLATELET COUNT 129 10^3/UL (140-415); POSITIVE DIFF @See below; RED BLOOD COUNT 4.63 10^6/ul (4.70-6.10); RED CELL DISTRIBUTION WIDTH 13.3 % (11.5-14.5); WHITE BLOOD COUNT 3.6 10^3/ul (4.8-10.8)
[2017-05-23 07:14] LABS: CALCIUM 9.7 mg/dl (8.4-10.2); CREATININE 1.73 mg/dl (0.61-1.24); POTASSIUM 4.5 mmol/L (3.5-5.1)
[2017-05-23] MEDS: INSULIN ASP PROT/ASPART (70/30) PEN SC SCH ×2 (07:25→18:41)
[2017-05-23] MEDS: INSULIN ASPART [NOVOLOG] 3 ML PEN SC SCH ×3 (07:55→17:55)
[2017-05-23] MEDS: CITALOPRAM 20 MG TAB PO SCH (09:00)
[2017-05-23] MEDS: ASPIRIN 81 MG TAB PO SCH (09:00)
[2017-05-23] MEDS: ALLOPURINOL 100 MG TAB PO SCH (09:00)
[2017-05-23] MEDS: ISOSORBIDE MONONITRATE(SR)30 MG TAB PO SCH (09:00)
[2017-05-23] MEDS ORDERED: FUROSEMIDE 20 MG TAB PO SCH (09:00)
[2017-05-23] MEDS ORDERED: LOSARTAN 25 MG TAB PO SCH (09:00)
[2017-05-23] MEDS: GABAPENTIN 300 MG CAP PO SCH ×2 (09:01→12:10)
[2017-05-23] MEDS: PRAMIPEXOLE 0.25 MG TAB PO SCH (09:01)
[2017-05-23] MEDS: ENOXAPARIN 30 MG/0.3 ML SYG SC SCH (09:29)
--- NOTE | 2017-05-23 09:36 | PN ---
Date/Time of Note Date/Time of Note DATE: 05/23/17 TIME: 09:29 SUBJECTIVE: Patient denies any complaints of chest pains dyspnea palpitations PND orthopnea. Currently eating breakfast on antibiotics for his diabetic foot ulcer. Chart, medications and laboratory studies reviewed. ROS: Patient denied any fevers, chills, weight loss, nausea, vomiting, diarrhea, constipation, cough, hemoptysis, dysuria, hematuria, nocturia, any neurologic symptoms, headache, any chest pains, dyspnea, PND, orthopnea, leg edema, or palpitations. All other review of systems were normal. Patient legally blind and has significant peripheral neuropathy. OBJECTIVE: Vital signs please see chart. HEENT; no JVD, no HJR, carotids 2 over 4+ without bruits. Patient legally blind. Chest: Clear to auscultation and percussion, no rales, wheezes or rhonchi. Anatomy. Cardiac: S4, S1, S2 with normal physiologic splitting, 1/6 systolic ejection murmur, no rub click or diastolic murmur noted. Abdominal: Bowel sounds positive, soft nontender, no abdominal bruit noted, no hepatosplenomegaly. Extremities: No cyanosis, clubbing, or edema. Negative Homans sign or palpable cords. Patient with diabetic foot ulcer and prior toe amputations Pulses: 2/4 pulses diffusely no bruits noted. LABORATORY STUDIES; Normal CBC platelets slightly low at 129, normal electrolytes BUN 30 creatinine 1.7, troponin 0.021, EKG from 20 May sinus bradycardia at 60 with first-degree block anterior wall infarction age undetermined left axis deviation left anterior hemiblock. Chest x-ray revealed 4 mm calcified right lung nodule apparently unchanged per report, poststernotomy, borderline cardiomegaly no overt heart failure no wide mediastinum. ASSESSMENT: 1. 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 2. Peripheral vascular disease prior toe amputations now with diabetic foot ulcer. 3. Coronary artery disease prior bypass surgery. 4. Hypertension. 5. Hyperlipidemia. 6. Renal insufficiency. 7. Minimal troponin elevation and absence of symptoms or EKG changes. 8. First-degree AV block. Patient clinically stable awaiting echocardiogram, will try to obtain old records, would continue current regimen however of statin, losartan, aspirin, M Louis, IV Lasix, and Protonix. Consider changing to oral Lasix tomorrow we will follow-up on chest x-ray. PLAN: 1. Continue aspirin, statin, losartan, Imdur, and IV Lasix. No beta-carmelo at present with first-degree AV block and bradycardia. 2. Awaiting echo report, follow EKGs and troponins. 3. Continue antibiotics for diabetic foot ulcer. YOHANNES VERMA MD May 23, 2017 09:36
--- NOTE | 2017-05-23 14:55 | CONS ---
Date/Time of Note Date/Time of Note DATE: 05/23/17 TIME: 14:42 Consultation Date/Type/Reason Admit Date/Time May 20, 2017 at 23:12 Initial Consult Date Chief Complaint/Hosp Course 76 y/o male being treated for DM ulcer and PAD. Patient is alert denies pain. Looks comfortable, resting in bed. Afebrile. VS: T: 98.0 BP : 127/58 P: 75 R: 20 [id number]: 97% LABS: WBC 3.6 H&H:14.1 and 42.4. Antimicrobials: none Microbiology: Blood and urine culture negative Diagnostics: Ultrasound of right lower extremity revealed no DVT Physical examination: This is a chronically ill-appearing elderly man who is alert in no distress. Head: atraumatic normocephalic sclerae nonicteric. Neck is supple chest rise symmetrical breath sounds clear. Heart: S1-S2. Abdomen: soft Bowel tones present Extremities: with left 4th toe amputation, right foot with pitting edema mostly around ankle, no erythema Assessment: 1. Right foot swelling, no evidence of infection 2. Acute on chronic kidney disease 3. Diabetes 4. Legally blind 5. History of CABG in 2010 6. PVD/ PAD with Hx of toe amputations. 7. DM foot ulcer Plan: Patient is stable, right lower extremity does not look infected. Observation and wound care. Type of Consultation: ID Exam/Review of Systems Vital Signs Vitals Vital Signs Date Time Temp Pulse Resp B/P Pulse Ox O2 Delivery O2 Flow Rate FiO2 05/23/17 12:08 86 05/23/17 11:14 98.0 20 127/58 97 05/21/17 00:20 Room Air Intake and Output 05/22/17 05/22/17 05/23/17 15:00 23:00 07:00 Intake Total 140 ml 1000 ml 450 ml Output Total 1700 ml 1400 ml Balance 140 ml -700 ml -950 ml Results Result Diagram: 05/23/17 0511 05/23/17 0551 Results 24 hrs Laboratory Tests Test 05/22/17 16:52 05/22/17 17:39 05/22/17 20:45 05/23/17 05:11 Bedside Glucose 122 121 125 White Blood Count 3.6 L Red Blood Count 4.63 L Hemoglobin 14.1 Hematocrit 42.4 Mean Corpuscular Volume 91.6 Mean Corpuscular Hemoglobin 30.5 Mean Corpuscular Hemoglobin Concent 33.3 Red Cell Distribution Width 13.3 Platelet Count 129 L Mean Platelet Volume 11.4 H Neutrophils % 54.3 Lymphocytes % 24.8 Monocytes % 12.7 H Eosinophils % 7.4 H Basophils % 0.8 Nucleated Red Blood Cells % 0.0 Neutrophils # 2.0 Lymphocytes # 0.9 Monocytes # 0.5 Eosinophils # 0.3 Basophils # 0.0 Nucleated Red Blood Cells # 0.0 Test 05/23/17 05:51 05/23/17 08:54 05/23/17 12:13 Sodium Level 140 Potassium Level 4.5 Chloride Level 107 Carbon Dioxide Level 25 Anion Gap 13 Blood Urea Nitrogen 30 H Creatinine 1.73 H Glucose Level 136 # Calcium Level 9.7 Bedside Glucose 172 207 Medications Medications Current Medications Allopurinol (Zyloprim) 100 mg DAILY PO Last administered on 05/23/17 09:00; Admin Dose 100 MG; Start 05/21/17 at 09:00 Aspirin (Aspirin) 81 mg DAILY PO Last administered on 05/23/17 09:00; Admin Dose 81 MG; Start 05/21/17 at 09:00 Citalopram Hydrobromide (Celexa) 20 mg DAILY PO Last administered on 05/23/17 09:00; Admin Dose 20 MG; Start 05/21/17 at 09:00 Isosorbide Mononitrate (Imdur) 30 mg DAILY PO Last administered on 05/23/17 09 :00; Admin Dose 30 MG; Start 05/21/17 at 09:00 Tamsulosin HCl (Flomax) 0.4 mg DAILY@21 PO Last administered on 05/22/17 20:42 ; Admin Dose 0.4 MG; Start 05/21/17 at 21:00 Morphine Sulfate (morphine) 0.5 mg Q6H PRN IV PAIN Last administered on 07:20; Admin Dose 0.5 MG; Start 05/21/17 at 01:00 Enoxaparin Sodium (Lovenox) 30 mg DAILY SC Last administered on 05/23/17 09:29 ; Admin Dose 30 MG; Start 05/21/17 at 14:00 Miscellaneous Information 1 ea NOTE XX ; Start 05/21/17 at 14:00 Glucose (Glutose) 15 gm Q15M PRN PO DECREASED GLUCOSE; Start 05/21/17 at 14:00 Glucose (Glutose) 22.5 gm Q15M PRN PO DECREASED GLUCOSE; Start 05/21/17 at 14: 00 Dextrose (D50w Syringe) 25 ml Q15M PRN IV DECREASED GLUCOSE; Start 05/21/17 at 14:00 Dextrose (D50w Syringe) 50 ml Q15M PRN IV DECREASED GLUCOSE; Start 05/21/17 at 14:00 Glucagon (Glucagen) 1 mg Q15M PRN IM DECREASED GLUCOSE; Start 05/21/17 at 14:00 Glucose (Glutose) 15 gm Q15M PRN BUCCAL DECREASED GLUCOSE; Start 05/21/17 at 14 :00 Atorvastatin Calcium (Lipitor) 40 mg HS PO Last administered on 05/22/17 20:42 ; Admin Dose 40 MG; Start 05/21/17 at 21:00 Gabapentin (Neurontin) 300 mg TID PO Last administered on 05/23/17 12:10; Admin Dose 300 MG; Start 05/22/17 at 21:00 Losartan Potassium (Cozaar) 25 mg DAILY PO Last administered on 05/23/17 09:01 ; Admin Dose 25 MG; Start 05/23/17 at 09:00 Pramipexole (Mirapex) 0.5 mg BID PO Last administered on 05/23/17 09:01; Admin Dose 0.5 MG; Start 05/22/17 at 21:00 Pantoprazole (Protonix Tab) 40 mg DAILY@06 PO Last administered on 05/23/17 05 :13; Admin Dose 40 MG; Start 05/23/17 at 06:00 Nifedipine (Procardia) 10 mg Q6 PRN PO sbp >180; Start 05/22/17 at 18:30 SENIA MARMOLEJO May 23, 2017 14:55
[2017-05-23] MEDS ORDERED: VANCOMYCIN 750 MG in SOD CHLORIDE 0.9% 150 ML IVPB SCH (17:00)
--- NOTE | 2017-05-23 17:05 | CONS ---
Date/Time of Note Date/Time of Note DATE: 05/23/17 TIME: 17:03 Assessment/Plan Assessment/Plan Problems: (1) Foot pain Status: Acute Qualifiers: Qualified Code: M79.671 - Pain in both feet (2) Diabetic foot ulcer Status: Acute Qualifiers: Qualified Code: E13.621 - Diabetic ulcer of toe of left foot associated with diabetes mellitus of other type, unspecified ulcer stage (3) Foot swelling Status: Acute (4) Bradycardia Status: Chronic (5) Sepsis Status: Resolved (6) Hypertension Status: Chronic (7) Acute on chronic renal failure Status: Resolved Additional Assessment/Plan At this time patient's right foot shows significant improvement with decrease in swelling and no redness. My recommendation for patient is to be discharged as per foot and ankle surgery. I will see the patient in the clinic in 1 week. Thank you again for involving the care of this patient. If you have any questions regarding this case, please feel free to contact me at pager: [phone] or reach me at mobile: [phone]. Consultation Date/Type/Reason Admit Date/Time May 20, 2017 at 23:12 Date of Consultation: May 23, 2017 Type of Consultation: Foot and ankle surgery Reason for Consultation Evaluation of right foot swelling and redness Hx of Present Illness Thank you very much for involving me in the care of this patient. As you know is a 76-year-old -[place] male with multiple medical problems including diabetes mellitus, coronary artery disease, chronic renal failure, prostate cancer peripheral vascular disease who has undergone toe amputations on the left foot. Patient says that the right foot started to become swollen and red along with pain in the past week. He was admitted to the hospital because of this and I was consulted for evaluation. Patient denies fever, chills, nausea or vomiting and reports no trauma to his right foot. Constitutional: improved, no complaints Eyes: no complaints ENT: no complaints Respiratory: no complaints Cardiovascular: no complaints Gastrointestinal: no complaints Genitourinary: no complaints Musculoskeletal: swelling Neurologic: no complaints Lymphatic: no complaints Psychological: nl mood/affect, no complaints Past Medical History As per history of present illness. Medical History: angina, cancer, coronary artery disease, diabetes, high cholesterol, hypertension, renal disease Past Surgical History As per history of present illness. Past Surgical Hx: cholecystectomy, coronary bypass surgery, other (Left 3rd and 4th toe amputation) Social History As per history of present illness. Alcohol Use: none Smoking Status: Never smoker Drug Use: none Exam/Review of Systems Vital Signs Vitals Vital Signs Date Time Temp Pulse Resp B/P Pulse Ox O2 Delivery O2 Flow Rate FiO2 05/23/17 16:16 71 05/23/17 15:33 98.2 20 132/67 97 05/21/17 00:20 Room Air Intake and Output 05/22/17 05/22/17 05/23/17 15:00 23:00 07:00 Intake Total 140 ml 1000 ml 450 ml Output Total 1700 ml 1400 ml Balance 140 ml -700 ml -950 ml Exam Patient is in no acute distress laying supine in bed. Right foot exam shows minimum edema with no open wound and no erythema. It is nontender to palpation. Planus foot type with contracted toes noted. Left foot is status post multiple toe amputations, well-healed with no complication. Left second toe is contracted with dorsal small area of excoriation. Nontender to exam. Patient has dystrophic toenails on both feet. Pedal pulses are weakly palpable and protective sensation is decreased to sharp dull vibratory temperature stimuli. Labs reviewed. Results Result Diagram: 05/23/17 0511 05/23/17 0551 Results 24 hrs Laboratory Tests Test 05/22/17 17:39 05/22/17 20:45 05/23/17 05:11 05/23/17 05:51 Bedside Glucose 121 125 White Blood Count 3.6 L Red Blood Count 4.63 L Hemoglobin 14.1 Hematocrit 42.4 Mean Corpuscular Volume 91.6 Mean Corpuscular Hemoglobin 30.5 Mean Corpuscular Hemoglobin Concent 33.3 Red Cell Distribution Width 13.3 Platelet Count 129 L Mean Platelet Volume 11.4 H Neutrophils % 54.3 Lymphocytes % 24.8 Monocytes % 12.7 H Eosinophils % 7.4 H Basophils % 0.8 Nucleated Red Blood Cells % 0.0 Neutrophils # 2.0 Lymphocytes # 0.9 Monocytes # 0.5 Eosinophils # 0.3 Basophils # 0.0 Nucleated Red Blood Cells # 0.0 Sodium Level 140 Potassium Level 4.5 Chloride Level 107 Carbon Dioxide Level 25 Anion Gap 13 Blood Urea Nitrogen 30 H Creatinine 1.73 H Glucose Level 136 # Calcium Level 9.7 Test 05/23/17 08:54 05/23/17 12:13 Bedside Glucose 172 207 Medications Medications Current Medications Allopurinol (Zyloprim) 100 mg DAILY PO Last administered on 05/23/17 09:00; Admin Dose 100 MG; Start 05/21/17 at 09:00 Aspirin (Aspirin) 81 mg DAILY PO Last administered on 05/23/17 09:00; Admin Dose 81 MG; Start 05/21/17 at 09:00 Citalopram Hydrobromide (Celexa) 20 mg DAILY PO Last administered on 05/23/17 09:00; Admin Dose 20 MG; Start 05/21/17 at 09:00 Isosorbide Mononitrate (Imdur) 30 mg DAILY PO Last administered on 05/23/17 09 :00; Admin Dose 30 MG; Start 05/21/17 at 09:00 Tamsulosin HCl (Flomax) 0.4 mg DAILY@21 PO Last administered on 05/22/17 20:42 ; Admin Dose 0.4 MG; Start 05/21/17 at 21:00 Morphine Sulfate (morphine) 0.5 mg Q6H PRN IV PAIN Last administered on 07:20; Admin Dose 0.5 MG; Start 05/21/17 at 01:00 Enoxaparin Sodium (Lovenox) 30 mg DAILY SC Last administered on 05/23/17 09:29 ; Admin Dose 30 MG; Start 05/21/17 at 14:00 Miscellaneous Information 1 ea NOTE XX ; Start 05/21/17 at 14:00 Glucose (Glutose) 15 gm Q15M PRN PO DECREASED GLUCOSE; Start 05/21/17 at 14:00 Glucose (Glutose) 22.5 gm Q15M PRN PO DECREASED GLUCOSE; Start 05/21/17 at 14: 00 Dextrose (D50w Syringe) 25 ml Q15M PRN IV DECREASED GLUCOSE; Start 05/21/17 at 14:00 Dextrose (D50w Syringe) 50 ml Q15M PRN IV DECREASED GLUCOSE; Start 05/21/17 at 14:00 Glucagon (Glucagen) 1 mg Q15M PRN IM DECREASED GLUCOSE; Start 05/21/17 at 14:00 Glucose (Glutose) 15 gm Q15M PRN BUCCAL DECREASED GLUCOSE; Start 05/21/17 at 14 :00 Atorvastatin Calcium (Lipitor) 40 mg HS PO Last administered on 05/22/17 20:42 ; Admin Dose 40 MG; Start 05/21/17 at 21:00 Gabapentin (Neurontin) 300 mg TID PO Last administered on 05/23/17 12:10; Admin Dose 300 MG; Start 05/22/17 at 21:00 Losartan Potassium (Cozaar) 25 mg DAILY PO Last administered on 05/23/17 09:01 ; Admin Dose 25 MG; Start 05/23/17 at 09:00 Pramipexole (Mirapex) 0.5 mg BID PO Last administered on 05/23/17 09:01; Admin Dose 0.5 MG; Start 05/22/17 at 21:00 Pantoprazole (Protonix Tab) 40 mg DAILY@06 PO Last administered on 05/23/17 05 :13; Admin Dose 40 MG; Start 05/23/17 at 06:00 Nifedipine (Procardia) 10 mg Q6 PRN PO sbp >180; Start 05/22/17 at 18:30 MAYA MULTANI DPM May 23, 2017 17:05
--- NOTE | 2017-05-23 18:17 | DS ---
Date/Time of Note Date/Time of Note DATE: 05/23/17 TIME: 18:00 Discharge Summary Admission/Discharge Info Admit Date/Time May 20, 2017 at 23:12 Discharge Date/Time May 23, 2017 1800 Discharge Diagnosis Acute renal failure Elevated troponins due to acute renal failure Acute gastroenteritis Leg edema Congestive heart disease Coronary artery disease Insulin dependent diabetes Hypertension Bradycardia due to beta carmelo Patient Condition: Stable Consults Cardiology Infectious disease Procedures Renal ultrasound Right lower extremity venous doppler Hx of Present Illness 76 year old male with diabetes, coronary artery disease, chronic renal failure, prostate cancer and peripheral vascular disease s/p toe amputations has been having progressive left foot swelling for the past 3 days , then intermittent fever and shaking chills . Patient was brought to [facility] ER where he was noted to have right foot swelling and acute renal failure as well as elevated troponins. He is admitted for possible to right foot cellulitis and renal failure and rule out MN. Patient's later reported that patient was having diarrhea along with the chills at home for 1-2 days prior to admission. Hospital Course Patients received IVF with rapid normalization of BUN/Cr back to baseline. His repeat troponins were normal. Renal ultrasound was notable for mildly enlarged prostate but no renal disease. Right leg venous doppler was negative for DVT. WBC and esr were not elevated. His blood and urine cultures were negative. Infectious disease development consultant noted no evidence of systemic bacterial infections and antibiotics were discontinued with no recurrence of chills or diarrhea. His usual medications were resumed when his renal function improved and he continues to do well. Patient was given one dose of hydralazine for high blood pressure while losartan was being held but had marked nausea on this medicine so it was discontinued. He is discharged to home on his usual medications. Home Meds Reported Medications Insulin Isophan/Regular (Humulin 70/30) 100 Units/Ml Susp, 45 UNIT SC AC BREAKFAST DINNER, EA 05/20/17 Hum Insulin NPH/Reg Insulin Hm (Humulin 70/30 Kwikpen) 100 Unit/1 Ml Insuln.pen , 65 UNIT SQ AC BREAKFAST 05/20/17 Gabapentin* (Gabapentin*) 300 Mg Capsule, 300 MG PO TID, #90 CAP 05/20/17 Furosemide* (Lasix*) 20 Mg Tablet, 20 MG PO DAILY, TAB 05/20/17 Pramipexole* (Pramipexole*) 0.5 Mg Tablet, 0.5 MG PO BID, TAB 05/20/17 Losartan Potassium* (Losartan Potassium*) 25 Mg Tablet, 25 MG PO DAILY, TAB 05/20/17 Omeprazole* (Omeprazole*) 20 Mg Capsule.dr, 20 MG PO DAILY, #30 CAP 05/20/17 Simvastatin* (Zocor*) 20 Mg Tablet, 20 MG PO QHS, #30 TAB 05/20/17 Tamsulosin Hcl* (Flomax*) 0.4 Mg Cap.er.24h, 0.4 MG PO DAILY, CAP 05/20/17 Isosorbide Mononitrate* (Imdur*) 30 Mg Tab.sr.24h, 30 MG PO DAILY 07/22/13 Citalopram Hydrobromide* (Celexa*) 20 Mg Tablet, 20 MG PO DAILY 07/22/13 Aspirin (Aspirin) 81 Mg Chew, 81 MG PO DAILY 07/22/13 Allopurinol* (Zyloprim*) 100 Mg Tablet, 100 MG PO DAILY 07/22/13 Metoprolol Tartrate (LOPRESSOR) 50 Mg Tab, 50 MG PO BID 07/22/13 Discontinued Reported Medications Hum Insulin Nph/Reg Insulin Hm (Humulin 70-30 Vial) 100 Units/Ml Vial, 40 UNITS SC AC DINNER 07/22/13 Hum Insulin Nph/Reg Insulin Hm (Humulin 70-30 Vial) 100 Units/Ml Vial, 60 UNITS SC AC BREAKFAST 07/22/13 Folic Acid* (Folic Acid*) 1 Mg Tablet, 1 MG PO DAILY 07/22/13 [Flomax] No Conflict Check, 0.4 MG PO DAILY 07/22/13 Zolpidem Tartrate (Ambien Polo) 5 Mg Tablet, 5 MG PO HS 07/22/13 [Glucose Gel] No Conflict Check, PO PRN 07/22/13 Glucagon* (Glucagen*) 1 Mg Soln, 1 MG IM PRN 07/22/13 Acetaminophen (Tylenol) 500 Mg Tab, 500 MG PO Q 4HRS PRN 07/22/13 Oxycodone Hcl-Acetaminophen* (Percocet*) 1 Tab Tablet, 1 TAB PO PRN 07/22/13 Nitroglycerin* (Nitroglycerin* SL) 0.4 Mg Tab.subl, 0.4 MG SL PRN 07/22/13 Magnesium Hydroxide* (Milk Of Magnesia*) 400 Mg/5 Ml Oral.susp, 30 ML PO HS 07/22/13 Bisacodyl* (Dulcolax*) 5 Mg Tablet.dr, 10 MG PO Q 4HRS PRN 07/22/13 Diphenhydramine Hcl* (Benadryl*) 25 Mg Cap, 25 MG PO Q 4HRS PRN 07/22/13 Atropine Sulfate (Atropine Care) 2 Ml Drops, 2 ML OP BID 07/22/13 Simvastatin* (Zocor*) 5 Mg Tablet, 5 MG PO HS 07/22/13 Lisinopril* (Zestril*) 5 Mg Tablet, 5 MG PO DAILY 07/22/13 Pantoprazole* (Protonix*) 40 Mg Tablet.dr, 40 MG PO DAILY 07/22/13 Finasteride* (Proscar*) 5 Mg Tablet, 5 MG PO daily 07/22/13 Follow-up Plan Follow up with Dr. Hernandez in 1-2 weeks. Primary Care Provider Anjel Hernandez MD Time spent on discharge: > 30 minutes Pending Labs Laboratory Tests Test 05/22/17 20:45 05/23/17 05:11 05/23/17 05:51 05/23/17 08:54 Bedside Glucose 125mg/dL (70-220) 172mg/dL (70-220) White Blood Count 3.610^3/ul (4.8-10.8) Red Blood Count 4.6310^6/ul (4.70-6.10) Hemoglobin 14.1g/dl (14.0-18.0) Hematocrit 42.4% (42.0-52.0) Mean Corpuscular Volume 91.6fl (82.0-101.0) Mean Corpuscular Hemoglobin 30.5pg (29.0-33.0) Mean Corpuscular Hemoglobin Concent 33.3g/dl (32.0-37.0) Red Cell Distribution Width 13.3% (11.5-14.5) Platelet Count 01741^3/UL (140-415) Mean Platelet Volume 11.4fl (7.4-10.4) Neutrophils % 54.3% (39.0-77.0) Lymphocytes % 24.8% (15.0-51.0) Monocytes % 12.7% (0.0-11.0) Eosinophils % 7.4% (0.0-7.0) Basophils % 0.8% (0.0-2.0) Nucleated Red Blood Cells % 0.0/100WBC (0.0-0.0) Neutrophils # 2.010^3/ul (1.6-7.5) Lymphocytes # 0.910^3/ul (0.8-2.9) Monocytes # 0.510^3/ul (0.3-0.9) Eosinophils # 0.310^3/ul (0.0-0.5) Basophils # 0.010^3/ul (0.0-0.1) Nucleated Red Blood Cells # 0.010^3/ul (0.0-0.0) Sodium Level 140mmol/L (135-144) Potassium Level 4.5mmol/L (3.5-5.1) Chloride Level 107mmol/L (97-110) Carbon Dioxide Level 25mmol/L (21-31) Anion Gap 13 (8-16) Blood Urea Nitrogen 30mg/dl (7-20) Creatinine 1.73mg/dl (0.61-1.24) Glucose Level 136mg/dl (70-220) Calcium Level 9.7mg/dl (8.4-10.2) Test 05/23/17 12:13 05/23/17 17:26 Bedside Glucose 207mg/dL (70-220) 112mg/dL (70-220) ANJEL HERNANDEZ MD May 23, 2017 18:14
--- NOTE | 2017-05-25 10:09 | RADRPT ---
Echocardiogram Report Patient Name: GERSON OWENS Gender: Male Date: 1940 Study Date: 23-May-2017 Physician Scientist: Ezra Romero [facility] Location: 512-A Ref. Physician: J LUIS KAHN Quality: Technically Difficult Study Procedures: Transthoracic echocardiogram with complete 2D, M-Mode, and doppler examination. Indications: Shortness of breath. 2D/M Mode Doppler Measurement Value Normal Ranges Measurement Value Normal Ranges AoR Diam MM 3.6 cm AV Peak Silver 1.2 m/sec ACS MM 2.2 cm AV Peak PG 5.8 mmHg LA/Ao MM 1.0 LVOT Peak Silver 0.7 m/sec LA Dimen MM 3.7 cm LVOT Peak PG 2.1 mmHg LVIDd 2D 4.3 3.5 - 5.6 cm MV E Peak Silver 0.8 m/sec LVPWd 2D 1.2 0.6 - 1.1 cm MV A Peak Silver 1.2 m/sec IVSd 2D 1.2 0.6 - 1.1 cm MV E/A 0.6 MV Decel Time 346 msec MV Decel [place] 2 MV E/A 0.6 TR Peak Silver 1.9 m/sec TR Peak PG 18.0 mmHg RVSP 21.0 mmHg Findings Left Ventricle: Normal left ventricular systolic function. Normal left ventricular cavity size. Left ventricle not well visualized. Mild concentric left ventricular hypertrophy. Ejection fraction is visually estimated at 60 %. Tissue Doppler/Mitral Doppler indices are consistent with impaired relaxation (Stage I diastolic dysfunction). Right Ventricle: Normal right ventricular size. Normal right ventricular systolic function. Left Atrium: The left atrium is normal in size. Right Atrium: The right atrium is normal in size. Mitral Valve: Mild mitral leaflet calcification. Mild mitral annular calcification. Trace mitral regurgitation. Aortic Valve: No significant aortic stenosis or insufficiency. Aortic sclerosis without stenosis. Tricuspid Valve: Normal appearance of the tricuspid valve. Unable to obtain RVSP due to minimal presence of tricuspid regurgitation. Estimated peak PA systolic pressure mmHg. There is trace tricuspid regurgitation. Pulmonic Valve: Pulmonic valve not well visualized. There is trace pulmonic regurgitation. Pericardium: Normal pericardium with no significant pericardial effusion. Aorta: Normal aortic root. IVC: Normal size and normal respiratory collapse consistent with normal right atrial pressure. Conclusions Very technically difficult study with limited visualization of endocardial border. Normal left ventricular systolic function. Normal left ventricular cavity size. Left ventricle not well visualized. Mild concentric left ventricular hypertrophy. Ejection fraction is visually estimated at 60 %. Tissue Doppler/Mitral Doppler indices are consistent with impaired relaxation (Stage I diastolic dysfunction). Normal right ventricular size. Normal right ventricular systolic function. The left atrium is normal in size. No significant aortic stenosis or insufficiency. Aortic sclerosis without stenosis. Normal appearance of the tricuspid valve. Unable to obtain RVSP due to minimal presence of tricuspid regurgitation. Estimated peak PA systolic pressure mmHg. There is trace tricuspid regurgitation. Normal pericardium with no significant pericardial effusion. Normal size and normal respiratory collapse consistent with normal right atrial pressure. Electronically Signed By: Michele Deutsch 25-May-2017 10:08:46 -0700 Patient Name: GERSON OWENS Study Date: 23-May-2017 [id number]
== END 2017-05-23 20:10 | disposition home health service (06) | DRG 872 ==
LOC: E/R 19:50 → MS2 23:12 → TEL 05-21 01:18
PROVIDERS: ADMIT Internal Medicine; ATTEND Internal Medicine
DX: A41.9 Sepsis, unspecified organism (principal); N17.9 Acute kidney failure, unspecified; E11.22 Type 2 diabetes mellitus with diabetic chronic kidney disease; E11.40 Type 2 diabetes mellitus with diabetic neuropathy, unspecified; I13.0 Hypertensive heart and chronic kidney disease with heart failure and stage 1 through stage 4 chronic kidney disease, or unspecified chronic kidney disease; I50.9 Heart failure, unspecified; L03.115 Cellulitis of right lower limb; E11.51 Type 2 diabetes mellitus with diabetic peripheral angiopathy without gangrene; E11.621 Type 2 diabetes mellitus with foot ulcer; L97.529 Non-pressure chronic ulcer of other part of left foot with unspecified severity; I25.10 Atherosclerotic heart disease of native coronary artery without angina pectoris; N18.9 Chronic kidney disease, unspecified; E11.319 Type 2 diabetes mellitus with unspecified diabetic retinopathy without macular edema; H54.8 Legal blindness, as defined in USA; E78.5 Hyperlipidemia, unspecified; R74.8 Abnormal levels of other serum enzymes; I44.0 Atrioventricular block, first degree; E66.9 Obesity, unspecified; Z68.34 Body mass index [BMI] 34.0-34.9, adult; K52.9 Noninfective gastroenteritis and colitis, unspecified; R00.1 Bradycardia, unspecified; T44.7X5A Adverse effect of beta-adrenoreceptor antagonists, initial encounter; Z79.4 Long term (current) use of insulin; Z79.82 Long term (current) use of aspirin; Z95.1 Presence of aortocoronary bypass graft; Z87.891 Personal history of nicotine dependence; Z85.46 Personal history of malignant neoplasm of prostate; Z89.422 Acquired absence of other left toe(s); Y92.230 Patient room in hospital as the place of occurrence of the external cause
CPT/HCPCS: 36415; 71010; 76775; 80048; 80053; 81001; 82962; 83036; 83605; 84484; 85025; 85610; 85651; 85730; 87040; 87086; 93005; 93306; 93971; 96374; 96375; J1940; J0692; J1650; J1815; J1817; J2270; J2405; J3370; J7030; J7050

== ENCOUNTER 2018-07-17 11:51 | Emergency (ER) | END 2018-07-17 16:58 | disposition home or self-care (01) ==

== ENCOUNTER 2018-07-25 17:10 | Inpatient (IN) | END 2018-07-28 18:42 | disposition home health service (06) | DRG 70 ==

== ENCOUNTER 2018-12-08 14:32 | Inpatient (IN) | payer MEDICARE, BC ==
[~2018-12-08] VITALS: Ht 165.1 cm; Wt 99.2 kg
[~2018-12-08 14:32] MED LIST changes: -ACET500T98 PO; +ARIP5TAB14 PO; +ASPI-831 PO; -ASPI81TA3 PO; -ATRO2DRO OP; -BEN25 PO; -BISA-57 PO; +CARV6.2579 PO; +DONE5TAB53 PO; -FINA5TAB PO; -FLOMAX PO; -FOLI-49 PO; +FURO40TA4 PO; +GABA300C16 PO; -GLUC1VIA7 IM; -GLUCOSE GEL PO; -HUM100VI8 SC; +HYDR-3609 PO; -LISI-523 PO; -MAGN400O4 PO; -METO-429 PO; -NITR0.4T32 SL; +NOV70303I SC; -OXYC-281 PO; -PANT40TA3 PO; +PRAM0.5T PO; +SIMV20TA PO; -SIMV5TAB31 PO; +TAMS-14 PO; +VIT-3 ORAL; -ZOLP5TAB PO
--- NOTE | 2018-12-08 15:39 | ERD ---
ER Documentation Chief Complaint Chief Complaint COUGH AND CONGESTION AND NON TRAUMATIC L HIP PAIN, EYE DRAINAGE FOR 1WK HPI This is a 78-year-old male with a prior history of diabetes, prior history of chronic kidney disease, prior history of prostate cancer, CHF. Who presents with multiple complaints: #Hip pain. Regarding his hip pain, the patient states he has this chronically, request pain medication for this, painful with movement, he has had no recent trauma, symptoms are aggravated by moving.' #Cough congestion. Patient has been having the symptoms for about the last week. He is not currently on antibiotics, there is no alleviating or aggravating factors. #Eye pain. 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 ROS All systems reviewed and are negative except as per history of present illness. Medications Home Meds Reported Medications Insulin Aspart (Novolog Mix (70/30)) 100 Units/Ml Soln, 40 UNIT SC WITH DINNER, EA 12/08/18 Insulin Aspart (Novolog Mix (70/30)) 100 Units/Ml Soln, 60 UNIT SC WITH BREAKFAST, VIAL 12/08/18 Erythromycin Base (Erythromycin) 1 Gm Oint...g., 1 GM OP DAILY 12/08/18 Brimonidine Tartrate* (Alphagan P*) 0.1%-15 Ml Opht Drops, 1 DROP BOTH EYES Q8, #1 EA 12/08/18 Dorzolamide/Timolol* (Dorzolamide/Timolol*) 10 Ml Drops, 1 DROP BOTH EYES BID, #1 EA 12/08/18 Metoprolol Tartrate* (Lopressor*) 50 Mg Tab, 50 MG PO BID, #60 TAB 12/08/18 Pantoprazole* (Pantoprazole*) 40 Mg Tablet.dr, 40 MG PO AC BREAKFAST, TAB 12/08/18 Furosemide* (Furosemide*) 40 Mg Tablet, 40 MG PO DAILY, TAB 12/08/18 Diltiazem Hcl* (Diltiazem XT) 180 Mg Capsule.er, 180 MG PO DAILY, #30 CAP 12/08/18 Vit B Cmplx 3/FA/Vit C/Biotin (Signal Constructor-Gia Rx Tablet) 1 Each Tablet, 1 EACH PO DAILY, TAB 12/08/18 Tamsulosin Hcl* (Flomax*) 0.4 Mg Cap.er.24h, 0.4 MG PO DAILY, CAP 12/08/18 Simvastatin* (Zocor*) 20 Mg Tablet, 20 MG PO QHS, #30 TAB 12/08/18 Pramipexole* (Pramipexole*) 0.5 Mg Tablet, 0.5 MG PO BID, TAB 12/08/18 Isosorbide Mononitrate* (Isosorbide Mononitrate*) 30 Mg Tab.er.24h, 30 MG PO DAILY, TAB 12/08/18 Gabapentin* (Gabapentin*) 300 Mg Capsule, 300 MG PO BID, #60 CAP 12/08/18 Aspirin* (Aspirin* EC) 81 Mg Tablet.dr, 81 MG PO DAILY, TAB 12/08/18 Allopurinol* (Allopurinol*) 100 Mg Tablet, 100 MG PO DAILY, TAB 12/08/18 Discontinued Reported Medications Vit B Cmplx 3/FA/Vit C/Biotin (Signal Constructor-Gia Rx Tablet) 1 Each Tablet, 1 TAB ORAL DAILY 07/17/18 Gabapentin* (Gabapentin*) 300 Mg Capsule, 300 MG PO TID, #90 CAP 05/20/17 Pramipexole* (Pramipexole*) 0.5 Mg Tablet, 0.5 MG PO BID, TAB 05/20/17 Simvastatin* (Zocor*) 20 Mg Tablet, 20 MG PO QHS, #30 TAB 05/20/17 Tamsulosin Hcl* (Flomax*) 0.4 Mg Cap.er.24h, 0.4 MG PO DAILY, CAP 05/20/17 Isosorbide Mononitrate* (Imdur*) 30 Mg Tab.sr.24h, 30 MG PO DAILY 07/22/13 Citalopram Hydrobromide* (Celexa*) 20 Mg Tablet, 20 MG PO DAILY 07/22/13 Aspirin (Aspirin) 81 Mg Chew, 81 MG PO DAILY 07/22/13 Allopurinol* (Zyloprim*) 100 Mg Tablet, 100 MG PO DAILY 07/22/13 Discontinued Scripts Hydrocodone/Acetaminophen (Hydrocodone-Acetamin 10-325 mg) 1 Each Tablet, 1 TAB PO Q6H PRN for MODERATE PAIN LEVEL 4-6 for 30 Days, #90 TAB Prov:ANJEL HERNANDEZ MD 07/28/18 Insulin Human Isophan/Regular (HUMULIN (70/30)) 100 Unit/Ml Susp, 50 UNIT SC AC BREAKFAST for 30 Days Prov:ANJEL HERNANDEZ MD 07/28/18 Aripiprazole* (Abilify*) 5 Mg Tab, 5 MG PO DAILY, #30 TAB Prov:ANJEL HERNANDEZ MD 07/28/18 Insulin Human Isophan/Regular (HUMULIN (70/30)) 100 Unit/Ml Susp, 30 UNIT SC AC DINNER for 30 Days Prov:ANJEL HERNANDEZ MD 07/28/18 Furosemide* (Furosemide*) 40 Mg Tablet, 40 MG PO DAILY for 30 Days, TAB Prov:ANJEL HERNANDEZ MD 07/28/18 Carvedilol* (Carvedilol*) 6.25 Mg Tablet, 6.25 MG PO BID for 30 Days, TAB Prov:ANJEL HERNANDEZ MD 07/28/18 Donepezil* (Aricept*) 5 Mg Tablet, 5 MG PO DAILY for 30 Days, TAB Prov:ANJEL HERNANDEZ MD 07/28/18 Allergies Allergies: Coded Allergies: No Known Allergy (Verified , 12/08/18) PMhx/Soc History of Surgery: Yes (knee sx, choley, LLE amputation of toes) Anesthesia Reaction: No Hx Neurological Disorder: No Hx Respiratory Disorders: No Hx Cardiac Disorders: Yes (s/p stent placement) Hx Psychiatric Problems: No Hx Miscellaneous Medical Probl: Yes (congestive heart failure, coronary artery disease, diabetes, hypertension) Hx Alcohol Use: No Hx Substance Use: No Hx Tobacco Use: No Physical Exam Vitals Vital Signs Date Temp Pulse Resp B/P (MAP) Pulse Ox O2 O2 Flow FiO2 Time Delivery Rate 12/08/18 97.9 63 20 168/78 95 14:45 (108) Physical Exam Const: Well-appearing, nontoxic, well-nourished Head: Atraumatic Eyes: Right eye with injected conjunctiva, pupil is abnormally shaped, fixed and dilated. Left eye, is equal round reactive to light ENT: Normal External Ears, Nose and Mouth. Neck: Full range of motion. No meningismus. Resp: Trace rales noted bilaterally, there are no wheezing Cardio: Regular rate and rhythm, no murmurs Abd: Soft, non tender, non distended. Normal bowel sounds Skin: No petechiae or rashes Back: No midline or flank tenderness Ext: No cyanosis, there is bilateral lower extremity edema, 2+ Neur: Awake and alert Psych: Normal Mood and Affect Result Diagram: 12/08/18 1542 12/08/18 1542 Results 24 hrs Laboratory Tests Test 12/08/18 15:42 White Blood Count 2.4 10^3/ul Red Blood Count 4.31 10^6/ul Hemoglobin 12.9 g/dl Hematocrit 39.1 % Mean Corpuscular Volume 90.7 fl Mean Corpuscular Hemoglobin 29.9 pg Mean Corpuscular Hemoglobin Concent 33.0 g/dl Red Cell Distribution Width 14.0 % Platelet Count 127 10^3/UL Mean Platelet Volume 11.2 fl Immature Granulocytes % 0.400 % Neutrophils % % Lymphocytes % % Monocytes % % Eosinophils % % Basophils % % Nucleated Red Blood Cells % 0.0 /100WBC Immature Granulocytes # 0.010 10^3/ul Neutrophils # 10^3/ul Lymphocytes # 10^3/ul Monocytes # 10^3/ul Eosinophils # 10^3/ul Basophils # 10^3/ul Nucleated Red Blood Cells # 10^3/ul Pathologist Review (Hematology) YES Sodium Level 141 mmol/L Potassium Level 5.3 mmol/L Chloride Level 104 mmol/L Carbon Dioxide Level 28 mmol/L Anion Gap 9 Blood Urea Nitrogen 33 mg/dl Creatinine 2.11 mg/dl Est Glomerular Filtrat Rate mL/min mL/min Glucose Level 346 mg/dl Calcium Level 9.5 mg/dl Total Bilirubin 0.1 mg/dl Direct Bilirubin 0.00 mg/dl Indirect Bilirubin 0.1 mg/dl Aspartate Amino Transf (AST/SGOT) 278 IU/L Alanine Aminotransferase (ALT/SGPT) 227 IU/L Alkaline Phosphatase 164 IU/L Troponin I < 0.012 ng/ml B-Type Natriuretic Peptide 667 PG/ML Total Protein 7.3 g/dl Albumin 3.7 g/dl Globulin 3.60 g/dl Albumin/Globulin Ratio 1.02 Current Medications Medications Dose Sig/Angelique Start Time Status Last (Trade) Ordered Route PRN Stop Time Admin Dose Reason Admin Vancomycin 250 ml @ ONCE STAT 12/08/18 HCl 125 mls/hr IVPB 17:01 12/08/18 19:00 Cefepime HCl 50 ml @ ONCE STAT 12/08/18 DC 100 mls/hr IVPB 17:01 12/08/18 17:30 Procedures/MDM This is an 78-year-old male who presents for evaluation of chronic hip pain, as well as eye pain, on exam patient had no notable deformities. Given his age, he is at risk for occult fracture, thus a CT of the hip was ordered, his chest x- ray was notable for a possible left lower lobe pneumonia. Given his c omorbidities, I discussed the case with his primary care doctor, Dr. Hernandez, who agrees with admission. He has had an admission within the last 3 months, thus will treat for healthcare associated pneumonia with Vanco and cefepime. He has no evidence of severe sepsis or sepsis. I had no evidence of any bacterial infection. Accepting Care Team: Current data and ongoing care discussed. Primary: David Consulting: None Outstanding Data: CT CAT scan results EKG: Rate/Rhythm: Normal Sinus Rhythm QRS, ST, T-waves: No changes consistent w/ acute ischemia Impression: No evidence of ischemia or arrhythmia Departure Diagnosis: Primary Impression: Multiple complaints Additional Impressions: Pneumonia Pneumonia type: due to unspecified organism Laterality: unspecified laterality Lung location: unspecified part of lung Qualified Codes: J18.9 - Pneumonia, unspecified organism Hip pain Laterality: unspecified laterality Qualified Codes: M25.559 - Pain in unspecified hip Eye pain Laterality: unspecified laterality Qualified Codes: H57.10 - Ocular pain, unspecified eye Condition: Stable DYLLAN YBARRA MD Dec 08, 2018 15:39
[2018-12-08] MEDS ORDERED: ISOS30TA67 PO (15:47)
[2018-12-08] MEDS ORDERED: ALLO100T PO (15:47)
[2018-12-08] MEDS ORDERED: ASPI-817 PO (15:47)
[2018-12-08] MEDS ORDERED: GABA300C16 PO (15:47)
[2018-12-08] MEDS ORDERED: PRAM0.5T PO (15:48)
[2018-12-08] MEDS ORDERED: SIMV20TA PO (15:48)
[2018-12-08] MEDS ORDERED: TAMS-14 PO (15:49)
[2018-12-08] MEDS ORDERED: VIT-3 PO (15:49)
[2018-12-08] MEDS ORDERED: FURO40TA4 PO (15:50)
[2018-12-08] MEDS ORDERED: PANT40TA4 PO (15:50)
[2018-12-08] MEDS ORDERED: DILT180C94 PO (15:50)
[2018-12-08] MEDS ORDERED: METO-429 PO (15:51)
[2018-12-08] MEDS ORDERED: BRIM15DR2 BOTH EYES (15:52)
[2018-12-08] MEDS ORDERED: DORZ10DR6 BOTH EYES (15:52)
[2018-12-08] MEDS ORDERED: ERYT1OIN6 OP (15:54)
[2018-12-08] MEDS ORDERED: NOVMIX SC ×2 (15:56)
[2018-12-08] MEDS ORDERED: VANCOMYCIN 1 GM (PMX) 250 ML IVPB STA (17:01)
[2018-12-08] MEDS ORDERED: CEFEPIME 2GM/50 ML (PMX) 50 ML IVPB STA (17:01)
[2018-12-08] MEDS ORDERED: ONDANSETRON 4 MG INJ IV STA (17:37)
[2018-12-08] MEDS ORDERED: morphine 4 MG/ML VIAL IV STA (17:37)
[2018-12-08] MEDS ORDERED: INSULIN ASP PROT/ASPART (70/30) PEN SC STA (18:54)
[2018-12-08] MEDS ORDERED: ACETAMINOPHEN 325 MG TAB PO ONE (19:00)
[2018-12-08] MEDS ORDERED: LORAZEPAM 2 MG INJ ONE (20:10)
[2018-12-08] MEDS ORDERED: LORAZEPAM 2 MG INJ IV ONE (20:30)
[2018-12-08] MEDS ORDERED: ONDANSETRON 4 MG INJ IV PRN (21:30)
[2018-12-08] MEDS ORDERED: ACETAMINOPHEN 325 MG TAB PO PRN (21:30)
[2018-12-08] MEDS ORDERED: BRIMONIDINE TARTRATE BOTH EYES SCH (22:30)
[2018-12-08] MEDS ORDERED: DORZOLAMIDE/TIMOLOL 10 ML OPH BOTH EYES SCH (22:30)
[2018-12-08] MEDS ORDERED: morphine 4 MG/ML VIAL IV PRN (22:30)
[2018-12-08 22:43] VITALS: BMI 36.3
[2018-12-08 22:57] VITALS: BP 128/60; PULSE 91; RESP 16
[2018-12-08 23:06] VITALS: Ht 165.1 cm; Wt 99.2 kg
[2018-12-09] MEDS: TAMSULOSIN (SR) 0.4 MG CAP PO SCH ×2 (01:09→20:52)
[2018-12-09] MEDS: DORZOLAMIDE/TIMOLOL/PF 0.2 ML DROPERETTE BOTH EYES SCH ×3 (01:10→20:52)
[2018-12-09] MEDS: PRAMIPEXOLE 0.25 MG TAB PO SCH ×3 (01:10→20:53)
[2018-12-09] MEDS: GABAPENTIN 300 MG CAP PO SCH ×3 (01:11→20:52)
[2018-12-09] MEDS: METOPROLOL 50 MG TAB PO SCH ×2 (01:13→08:44)
[2018-12-09 01:25] VITALS: BP 116/63; PULSE 92; RESP 16
[2018-12-09] MEDS: PANTOPRAZOLE (EC) 40 MG TAB PO SCH (06:20)
[2018-12-09 07:34] VITALS: BP 126/66; PULSE 67; RESP 18
[2018-12-09] MEDS: INSULIN ASP PROT/ASPART (70/30) PEN SC SCH ×2 (08:42→18:32)
[2018-12-09] MEDS: ASPIRIN (EC) 81 MG TAB PO SCH (08:43)
[2018-12-09] MEDS: DILTIAZEM (CD) 180 MG CAP PO SCH (08:43)
[2018-12-09] MEDS: ALLOPURINOL 100 MG TAB PO SCH (08:43)
[2018-12-09] MEDS: ISOSORBIDE MONONITRATE(SR)30 MG TAB PO SCH (08:44)
[2018-12-09] MEDS: ESCITALOPRAM 10 MG TAB PO SCH (08:44)
[2018-12-09] MEDS: FUROSEMIDE 40 MG TAB PO SCH (08:44)
[2018-12-09] MEDS ORDERED: CEFEPIME 1GM/50 ML (PMX) 50 ML IVPB SCH (09:00)
[2018-12-09] MEDS ORDERED: ERYTHROMYCIN 1 GM OPH OINT OP SCH (09:00)
[2018-12-09] MEDS ORDERED: BIOTIN PO SCH (09:00)
[2018-12-09] MEDS ORDERED: VIT B CMPLX PO SCH (09:00)
[2018-12-09] MEDS ORDERED: [UNRECOGNIZED DRUG - OTHER] PO SCH (09:00)
[2018-12-09] MEDS: ALPHAGAN P 0.1% BOTH EYES SCH ×2 (10:21→14:24)
[2018-12-09] MEDS: VITAMIN B COMPLEX/VIT C CAP PO SCH (14:24)
[2018-12-09 15:14] VITALS: BP 110/56; PULSE 50; RESP 18
--- NOTE | 2018-12-09 15:54 | HP ---
Date/Time of Note Date/Time of Note DATE: 12/09/18 TIME: 15:49 Assessment/Plan VTE [place] [facility] [place]: 3 [place]CD [place] [facility] [place] SCD contraindicated: patient refusal Pharmacological prophylaxis: NA/contraindicated Pharm contraindication: renal impairment Lines/Catheters IV [facility] Peripheral IV Assessment/Plan Problems: (1) Pneumonia Status: Acute Comment: Chest xray in ER showed evolving pneumonia. Will recheck chest CT and continue antibiotics for now.l Qualifiers: Pneumonia type: due to unspecified organism Laterality: unspecified laterality Lung location: unspecified part of lung Qualified Codes: J18.9 - Pneumonia, unspecified organism (2) Acute hepatitis Status: Acute Comment: No prior history of hepatitis, will check Hepatitis titers since liver appears normal on abd CT scan. Will check with daughter regarding which meds patient has been taking at home. (3) Hip pain Status: Acute Comment: Hip xrays normal. Will probably need to obtain hip / pelvis MRI. Patient unable to bear weight on left leg. Qualifiers: Laterality: unspecified laterality Qualified Codes: M25.559 - Pain in un specified hip (4) Eye pain Status: Acute Comment: Patient has end stage glaucoma, scheduled for enucleation sometime next week. Control pain for now. Qualifiers: Laterality: right Qualified Codes: H57.11 - Ocular pain, right eye (5) Bradycardia Status: Acute Comment: may need to reduce metoprolol or cardizem dosage if bradycardia persis ts. (6) Prostate cancer Status: Chronic (7) Hypertension Status: Chronic Comment: cannot take ACEI or ARB due to hyperkalemia. Use Cardizem and metoprolol for now but consider changing to nifedipine. (8) Depression Status: Chronic (9) Peripheral edema Status: Chronic (10) Anemia Status: Chronic Result Diagram: 12/09/18 0530 12/09/18 0529 Results 24hrs Laboratory Tests Test 12/08/18 20:03 12/08/18 20:52 12/08/18 21:23 12/09/18 01:15 Bedside Glucose 289 H 273 H 280 H Urine Color YELLOW Urine Clarity CLEAR Urine pH 5.0 Urine Specific 1.013 [place] Urine Ketones NEGATIVE Urine Nitrite NEGATIVE Urine Bilirubin NEGATIVE Urine Urobilinogen NEGATIVE Urine Leukocyte NEGATIVE Esterase Urine Microscopic 1 RBC Urine Microscopic 0 WBC Urine Hemoglobin 1+ H Urine Glucose 2+ H Urine Total Protein 2+ H Test 12/09/18 05:29 12/09/18 05:30 12/09/18 08:07 Sodium Level 143 Potassium Level 4.8 Chloride Level 107 Carbon Dioxide Level 29 Anion Gap 7 Blood Urea Nitrogen 34 H Creatinine 2.15 H Est Glomerular Filtrat Rate mL/min Glucose Level 107 # Calcium Level 9.5 Total Bilirubin 0.3 Direct Bilirubin 0.00 Indirect Bilirubin 0.3 Aspartate Amino 193 H Transf (AST/SGOT) Alanine 204 H Aminotransferase (AL T/SGPT) Alkaline Phosphatase 133 H Total Protein 6.9 Albumin 3.6 Globulin 3.30 H Albumin/Globulin 1.09 Ratio Amylase Level 72 Lipase 76 White Blood Count 4.8 # Red Blood Count 4.17 L Hemoglobin 12.5 L Hematocrit 37.3 L Mean Corpuscular 89.4 Volume Mean Corpuscular 30.0 Hemoglobin Mean Corpuscular 33.5 Hemoglobin Concent Red Cell 13.9 Distribution Width Platelet Count 126 L Mean Platelet Volume 11.0 H Immature 0.400 Granulocytes % Neutrophils % 72.7 Lymphocytes % 9.1 L Monocytes % 11.4 H Eosinophils % 6.0 Basophils % 0.4 Nucleated Red Blood 0.0 Cells % Immature 0.020 Granulocytes # Neutrophils # 3.5 Lymphocytes # 0.4 L Monocytes # 0.6 Eosinophils # 0.3 Basophils # 0.0 Nucleated Red Blood 0.0 Cells # Bedside Glucose 109 HPI/ROS Admit Date/Time Admit Date/Time Dec 08, 2018 at 17:01 Hx of Present Illness Patient presents with left hip pain, right eye pain and cough and congestion. ER work up notable for low wbc, possible pneumonia and markedly elevated liver enzymes. PMH/Family/Social Past Medical History Medications Current Medications Allopurinol (Zyloprim) 100 mg DAILY PO Last administered on 12/09/18 08:43; Admin Dose 100 MG; Start 12/09/18 at 09:00 Aspirin (Halfprin) 81 mg DAILY PO Last administered on 12/09/18at 08:43; Admin Dose 81 MG; Start 12/09/18 at 09:00 Diltiazem HCl (Cardizem Cd) 180 mg DAILY PO Last administered on 12/09/18at 08:43; Admin Dose 180 MG; Start 12/09/18 at 09:00 Erythromycin (Erythromycin Oph Oint) 1 applic DAILY OP Last administered on 12/09/18 10:20; Admin Dose 1 APPLIC; Start 12/09/18 at 09:00 Furosemide (Lasix) 40 mg DAILY PO Last administered on 12/09/18 08:44; Admin Dose 40 MG; Start 12/09/18 at 09:00 Gabapentin (Neurontin) 300 mg BID PO Last administered on 12/09/18 08:43; Admin Dose 300 MG; Start 12/08/18 at 22:30 Insulin Aspart Prota 70%/Aspart 30% (Novolog Mix (70/ 30) Flexpen) 40 unit WITH DINNER SC ; Start 12/09/18 at 18:00 Insulin Aspart Prota 70%/Aspart 30% (Novolog Mix (70/ 30) Flexpen) 60 unit WITH BREAKFAST SC Last administered on 12/09/18 08:42; Admin Dose 60 UNIT; Start 12/09/18 at 08:00 Isosorbide Mononitrate (Imdur) 30 mg DAILY PO Last administered on 12/09/18 08:44; Admin Dose 30 MG; Start 12/09/18 at 09:00 Metoprolol Tartrate (Lopressor) 50 mg BID PO Last administered on 12/09/18 08:44; Admin Dose 50 MG; Start 12/08/18 at 22:30 Pantoprazole (Protonix Tab) 40 mg AC BREAKFAST PO Last administered on 12/09/18 06:20; Admin Dose 40 MG; Start 12/09/18 at 07:00 Pramipexole (Mirapex) 0.5 mg BID PO Last administered on 12/09/18 08:44; Admin Dose 0.5 MG; Start 12/08/18 at 22:30 Tamsulosin HCl (Flomax) 0.4 mg QHS PO Last administered on 12/09/18 01:09; Admin Dose 0.4 MG; Start 12/08/18 at 23:03 Atorvastatin Calcium (Lipitor) 10 mg DAILY@21 PO ; Start 12/09/18 at 21:00 Cefepime HCl 50 ml @ 100 mls/hr Q24H IVPB Last administered on 12/09/18 08:43; Admin Dose 100 MLS/HR; Start 12/09/18 at 09:00 Morphine Sulfate (morphine) 3 mg Q4H PRN IV SEVERE PAIN LEVEL 7-10; Start 12/08/18 at 22:30 Escitalopram Oxalate (Lexapro) 10 mg DAILY PO Last administered on 12/09/18at 08 :44; Admin Dose 10 MG; Start 12/09/18 at 09:00 Dorzolamide/ Timolol (Cosopt Pf Eye Drops) 1 drop BID BOTH EYES Last administered on 12/09/18 08:46; Admin Dose 1 DROP; Start 12/08/18 at 23:01 Non-Formulary Medication 1 ea Q8 BOTH EYES Last administered on 12/09/18at 14:24; Admin Dose 1 EA; Start 12/09/18 at 10:00 Vitamin B Complex/ Vitamin C (Berocca) 1 cap DAILY PO Last administered on 12/09/18 14:24; Admin Dose 1 CAP; Start 12/09/18 at 13:00 Coded Allergies: No Known Allergy (Verified , 12/08/18) Past Surgical History Past Surgical Hx: cholecystectomy, coronary bypass surgery, other Family History Significant Family History: diabetes Social History Smoking Status: Never smoker Exam/Review of Systems Vital Signs Vitals Vital Signs Date Temp Pulse Resp B/P (MAP) Pulse Ox O2 O2 Flow FiO2 Time Delivery Rate 12/09/18 98.5 50 18 110/56 98 15:14 (74) 12/09/18 Nasal 2.0 08:10 Cannula Intake and Output 12/08/18 12/08/18 12/09/18 1515:00 23:00 07:00 IntakeIntake Total 300 ml 200 ml BalanceBalance 300 ml 200 ml Exam Constitutional: alert, oriented Eyes: other (injected right conjunctiva) ENMT: nl external ears & nose Neck: supple Respiratory: clear to auscultation Cardiovascular: regular rate and rhythm Gastrointestinal: soft, non-tender Genitourinary - Male: nl penis Genitourinary - Female: nl adnexae Musculoskeletal: nl extremities to inspection ANJEL GALLEGOS MD Dec 09, 2018 15:54
[2018-12-09] MEDS: morphine 2 MG INJ IV PRN (16:54)
[2018-12-09 19:39] VITALS: BP 133/65; PULSE 55; RESP 18
[2018-12-09] MEDS: ATORVASTATIN 10 MG TAB PO SCH (20:52)
[2018-12-09] MEDS: ACETAMINOPHEN 325 MG TAB PO PRN (23:20)
[2018-12-09] MEDS ORDERED: ACETAMINOPHEN 325 MG TAB PO PRN (23:30)
[2018-12-10] MEDS: ALPHAGAN P 0.1% BOTH EYES SCH ×4 (01:15→21:20)
[2018-12-10 02:05] VITALS: BP 141/70; PULSE 54; RESP 18
[2018-12-10] MEDS: ACETAMINOPHEN 325 MG TAB PO PRN ×3 (04:50→15:19)
[2018-12-10] MEDS: PANTOPRAZOLE (EC) 40 MG TAB PO SCH (06:18)
[2018-12-10 07:31] VITALS: BP 165/77; PULSE 66; RESP 18
[2018-12-10] MEDS: ERYTHROMYCIN 1 GM OPH OINT RIGHT EYE SCH (09:02)
[2018-12-10] MEDS: DORZOLAMIDE/TIMOLOL/PF 0.2 ML DROPERETTE BOTH EYES SCH ×2 (09:02→21:19)
[2018-12-10] MEDS: GABAPENTIN 300 MG CAP PO SCH ×2 (09:03→21:19)
[2018-12-10] MEDS: ASPIRIN (EC) 81 MG TAB PO SCH (09:03)
[2018-12-10] MEDS: VITAMIN B COMPLEX/VIT C CAP PO SCH (09:03)
[2018-12-10] MEDS: ISOSORBIDE MONONITRATE(SR)30 MG TAB PO SCH (09:04)
[2018-12-10] MEDS: DILTIAZEM (CD) 180 MG CAP PO SCH (09:04)
[2018-12-10] MEDS: ESCITALOPRAM 10 MG TAB PO SCH (09:05)
[2018-12-10] MEDS: FUROSEMIDE 40 MG TAB PO SCH (09:05)
[2018-12-10] MEDS: ALLOPURINOL 100 MG TAB PO SCH (09:05)
[2018-12-10] MEDS: PRAMIPEXOLE 0.25 MG TAB PO SCH ×2 (09:06→21:19)
[2018-12-10] MEDS: INSULIN ASP PROT/ASPART (70/30) PEN SC SCH ×2 (09:11→18:05)
--- NOTE | 2018-12-10 12:19 | PN ---
Date/Time of Note Date/Time of Note DATE: 12/10/18 TIME: 12:03 Assessment/Plan VTE Prophylaxis Risk score (from Ns)>0 risk: 3 SCD applied (from Ns): Yes Pharmacological prophylaxis: NA/contraindicated Pharm contraindication: thrombocytopenia, renal impairment Lines/Catheters IV [facility] Saline Lock Assessment/Plan Problems: (1) Hip pain Status: Acute Comment: Patient unable to bear weight on left leg due to ileopsoas tendon rupture and other tendinosis . Will check with Orthopedic regarding treatment options. Patient has been told not to do any "physical therapy" on his own. Continue to adjust pain meds since patient does not like morphine but excessive tylenol is not an option due to his liver inflammation, trial of oxycodone without acetaminophen. Qualifiers: Laterality: unspecified laterality Qualified Codes: M25.559 - Pain in unspecified hip (2) Acute hepatitis Status: Acute Comment: Hepatitis titers negative so far, liver normal on ct scan, levels improving gradually so elevated liver enzymes may be due to medications. Most likely because patient has been taking excessive acetaminophen for his hip pain, but patient had recent adjustment in cardizem and metoprolol which may impact liver also. (3) Bradycardia Status: Chronic Comment: Improving gradually with metoprolol on hold . Patient was taking lower dose of metoprolol at home , may restart at 25mg if bp keeps coming up. (4) Hypertension Status: Chronic Comment: Patient was taking lower dose of metoprolol at home , may restart at 25mg if bp keeps coming up. May need to reduce cardizem dose if bradycardia recurs. Patient cannot take ACEI or ARB due to hyperkalemia and renal disease. (5) Pneumonia Status: Resolved Comment: No acute pneumonia on Chest CT , low wbc suggest viral infection, antibiotics discontinued. Qualifiers: Pneumonia type: due to unspecified organism Laterality: unspecified laterality Lung location: unspecified part of lung Qualified Codes: J18.9 - Pneumonia, unspecified organism (6) Eye pain Status: Acute Comment: Scheduled for eye enucleation later this week if patient stabilized. Qualifiers: Laterality: unspecified laterality Qualified Codes: H57.10 - Ocular pain, unspecified eye (7) Peripheral edema Status: Chronic Comment: Was on lasix at home. Better here due to less dependency/ more bed rest. (8) Prostate cancer Status: Chronic (9) Chronic renal disease Status: Chronic Result Diagram: 12/10/18 0437 12/10/18 0437 Results 24hrs Laboratory Tests Test 12/09/18 17:44 12/09/18 18:08 12/09/18 18:30 12/10/18 04:36 Bedside Glucose 76 91 128 Gamma Glutamyl 132 H Transpeptidase Amylase Level 58 Lipase 68 Test 12/10/18 04:37 12/10/18 08:20 White Blood Count 3.9 L Red Blood Count 4.18 L Hemoglobin 12.6 L Hematocrit 38.1 L Mean Corpuscular 91.1 Volume Mean Corpuscular 30.1 Hemoglobin Mean Corpuscular 33.1 Hemoglobin Concent Red Cell 14.1 Distribution Width Platelet Count 123 L Mean Platelet Volume 11.5 H Immature 0.800 H Granulocytes % Neutrophils % 48.1 Lymphocytes % 29.4 Monocytes % 12.8 H Eosinophils % 8.4 H Basophils % 0.5 Nucleated Red Blood 0.0 Cells % Immature 0.030 Granulocytes # Neutrophils # 1.9 Lymphocytes # 1.2 Monocytes # 0.5 Eosinophils # 0.3 Basophils # 0.0 Nucleated Red Blood 0.0 Cells # Sodium Level 141 Potassium Level 5.1 Chloride Level 104 Carbon Dioxide Level 30 Anion Gap 7 Blood Urea Nitrogen 37 H Creatinine 2.15 H Est Glomerular Filtrat Rate mL/min Glucose Level 88 Calcium Level 9.5 Total Bilirubin 0.2 Direct Bilirubin 0.00 Indirect Bilirubin 0.2 Aspartate Amino 121 H Transf (AST/SGOT) Alanine 152 H Aminotransferase (AL T/SGPT) Alkaline Phosphatase 121 Total Protein 7.2 Albumin 3.6 Globulin 3.60 H Albumin/Globulin 1.00 Ratio Bedside Glucose 124 Subjective 24 Hr Interval Summary Free Text/Dictation Patient recalled swinging left leg out of bed quickly causing severe pain about 1 month ago when his left hip pain started. He has been taking [place] on top of the 5-6 tylenol that he has been taking for the pain. Worried about his eye surgery because left eye pain from glaucoma has been causing severe headache for weeks and he is scheduled for eye enucleation s urgery soon. Exam/Review of Systems Exam Vitals Vital Signs Date Temp Pulse Resp B/P (MAP) Pulse Ox O2 O2 Flow FiO2 Time Delivery Rate 12/10/18 97.7 66 18 165/77 96 07:31 (106) 12/09/18 Nasal 2.0 19:59 Cannula Intake and Output 12/09/18 12/09/18 12/10/18 1515:00 23:00 07:00 IntakeIntake Total 890 ml 840 ml OutputOutput Total 500 ml 250 ml BalanceBalance 390 ml 590 ml Constitutional: alert Eyes: nl conjunctiva ENMT: nl external ears & nose Respiratory: clear to auscultation Gastrointestinal: soft Results Results 24hrs Laboratory Tests Test 12/09/18 17:44 12/09/18 18:08 12/09/18 18:30 12/10/18 04:36 Bedside Glucose 76 91 128 Gamma Glutamyl 132 H Transpeptidase Amylase Level 58 Lipase 68 Test 12/10/18 04:37 12/10/18 08:20 White Blood Count 3.9 L Red Blood Count 4.18 L Hemoglobin 12.6 L Hematocrit 38.1 L Mean Corpuscular 91.1 Volume Mean Corpuscular 30.1 Hemoglobin Mean Corpuscular 33.1 Hemoglobin Concent Red Cell 14.1 Distribution Width Platelet Count 123 L Mean Platelet Volume 11.5 H Immature 0.800 H Granulocytes % Neutrophils % 48.1 Lymphocytes % 29.4 Monocytes % 12.8 H Eosinophils % 8.4 H Basophils % 0.5 Nucleated Red Blood 0.0 Cells % Immature 0.030 Granulocytes # Neutrophils # 1.9 Lymphocytes # 1.2 Monocytes # 0.5 Eosinophils # 0.3 Basophils # 0.0 Nucleated Red Blood 0.0 Cells # Sodium Level 141 Potassium Level 5.1 Chloride Level 104 Carbon Dioxide Level 30 Anion Gap 7 Blood Urea Nitrogen 37 H Creatinine 2.15 H Est Glomerular Filtrat Rate mL/min Glucose Level 88 Calcium Level 9.5 Total Bilirubin 0.2 Direct Bilirubin 0.00 Indirect Bilirubin 0.2 Aspartate Amino 121 H Transf (AST/SGOT) Alanine 152 H Aminotransferase (AL T/SGPT) Alkaline Phosphatase 121 Total Protein 7.2 Albumin 3.6 Globulin 3.60 H Albumin/Globulin 1.00 Ratio Bedside Glucose 124 Medications Medication Current Medications Allopurinol (Zyloprim) 100 mg DAILY PO Last administered on 12/10/18at 09:05; Admin Dose 100 MG; Start 12/09/18 at 09:00 Aspirin (Halfprin) 81 mg DAILY PO Last administered on 12/10/18at 09:03; Admin Dose 81 MG; Start 12/09/18 at 09:00 Diltiazem HCl (Cardizem Cd) 180 mg DAILY PO Last administered on 12/10/18 09:04; Admin Dose 180 MG; Start 12/09/18 at 09:00 Furosemide (Lasix) 40 mg DAILY PO Last administered on 12/10/18 09:05; Admin Dose 40 MG; Start 12/09/18 at 09:00 Gabapentin (Neurontin) 300 mg BID PO Last administered on 12/10/18 09:03; Admin Dose 300 MG; Start 12/08/18 at 22:30 Insulin Aspart Prota 70%/Aspart 30% (Novolog Mix (70/ 30) Flexpen) 40 unit WITH DINNER SC Last administered on 12/09/18 18:32; Admin Dose 40 UNIT; Start 12/09/18 at 18:00 Insulin Aspart Prota 70%/Aspart 30% (Novolog Mix (70/ 30) Flexpen) 60 unit WITH BREAKFAST SC Last administered on 12/10/18 09:11; Admin Dose 60 UNIT; Start 12/09/18 at 08:00 Isosorbide Mononitrate (Imdur) 30 mg DAILY PO Last administered on 12/10/18 09:04; Admin Dose 30 MG; Start 12/09/18 at 09:00 Pantoprazole (Protonix Tab) 40 mg AC BREAKFAST PO Last administered on 12/10/18 06:18; Admin Dose 40 MG; Start 12/09/18 at 07:00 Pramipexole (Mirapex) 0.5 mg BID PO Last administered on 12/10/18 09:06; Admin Dose 0.5 MG; Start 12/08/18 at 22:30 Tamsulosin HCl (Flomax) 0.4 mg QHS PO Last administered on 12/09/18 20:52; Admin Dose 0.4 MG; Start 12/08/18 at 23:03 Atorvastatin Calcium (Lipitor) 10 mg DAILY@21 PO Last administered on 12/09/18 20:52; Admin Dose 10 MG; Start 12/09/18 at 21:00 Escitalopram Oxalate (Lexapro) 10 mg DAILY PO Last administered on 12/10/18 09:05; Admin Dose 10 MG; Start 12/09/18 at 09:00 Dorzolamide/ Timolol (Cosopt Pf Eye Drops) 1 drop BID BOTH EYES Last administered on 12/10/18 09:02; Admin Dose 1 DROP; Start 12/08/18 at 23:01 Non-Formulary Medication 1 ea Q8 BOTH EYES Last administered on 12/10/18 06:17; Admin Dose 1 EA; Start 12/09/18 at 10:00 Vitamin B Complex/ Vitamin C (Berocca) 1 cap DAILY PO Last administered on 12/10/18 09:03; Admin Dose 1 CAP; Start 12/09/18 at 13:00 Morphine Sulfate (morphine) 2 mg Q4H PRN IV SEVERE PAIN LEVEL 7-10 Last administered on 12/09/18 16:54; Admin Dose 2 MG; Start 12/09/18 at 17:00 Erythromycin (Erythromycin Oph Oint) 1 applic DAILY RIGHT EYE Last administered on 12/10/18 09:02; Admin Dose 1 APPLIC; Start 12/09/18 at 18:17 Acetaminophen (Tylenol Tab) 650 mg Q6H PRN PO MILD PAIN(1-3)OR ELEVATED TEMP Last administered on 12/10/18 09:06; Admin Dose 650 MG; Start 12/09/18 at 23:30 ANJEL GALLEGOS MD Dec 10, 2018 12:15
[2018-12-10 13:57] VITALS: BP 128/62; PULSE 67; RESP 18
[2018-12-10] MEDS: morphine 2 MG INJ IV PRN (16:13)
[2018-12-10 20:18] VITALS: BP 125/63; PULSE 62; RESP 18
[2018-12-10] MEDS: TAMSULOSIN (SR) 0.4 MG CAP PO SCH (21:19)
[2018-12-10] MEDS: ATORVASTATIN 10 MG TAB PO SCH (21:19)
[2018-12-11] MEDS: morphine 2 MG INJ IV PRN (00:31)
[2018-12-11] MEDS ORDERED: morphine 4 MG/ML VIAL IV PRN (01:00)
[2018-12-11 02:39] VITALS: BP 132/67; PULSE 54; RESP 18
[2018-12-11] MEDS: PANTOPRAZOLE (EC) 40 MG TAB PO SCH (06:22)
[2018-12-11] MEDS: ALPHAGAN P 0.1% BOTH EYES SCH ×3 (06:22→21:31)
[2018-12-11 07:25] VITALS: BP 165/76; PULSE 58; RESP 17
[2018-12-11] MEDS: INSULIN ASP PROT/ASPART (70/30) PEN SC SCH ×2 (08:11→18:08)
[2018-12-11] MEDS: PRAMIPEXOLE 0.25 MG TAB PO SCH ×2 (08:12→21:31)
[2018-12-11] MEDS: ALLOPURINOL 100 MG TAB PO SCH (08:12)
[2018-12-11] MEDS: VITAMIN B COMPLEX/VIT C CAP PO SCH (08:12)
[2018-12-11] MEDS: DORZOLAMIDE/TIMOLOL/PF 0.2 ML DROPERETTE BOTH EYES SCH ×2 (08:12→21:32)
[2018-12-11] MEDS: GABAPENTIN 300 MG CAP PO SCH ×2 (08:12→21:31)
[2018-12-11] MEDS: ASPIRIN (EC) 81 MG TAB PO SCH (08:12)
[2018-12-11] MEDS: ESCITALOPRAM 10 MG TAB PO SCH (08:12)
[2018-12-11] MEDS: DILTIAZEM (CD) 180 MG CAP PO SCH (08:13)
[2018-12-11] MEDS: ISOSORBIDE MONONITRATE(SR)30 MG TAB PO SCH (08:13)
[2018-12-11] MEDS: FUROSEMIDE 40 MG TAB PO SCH (08:13)
[2018-12-11] MEDS: ERYTHROMYCIN 1 GM OPH OINT RIGHT EYE SCH (08:14)
[2018-12-11 13:55] VITALS: BP 110/58; PULSE 66; RESP 18
--- NOTE | 2018-12-11 16:47 | PN ---
Date/Time of Note Date/Time of Note DATE: 12/11/18 TIME: 16:44 Assessment/Plan VTE Prophylaxis Risk score (from Ns)>0 risk: 4 SCD applied (from Ns): Yes Pharmacological prophylaxis: NA/contraindicated Pharm contraindication: bleeding Lines/Catheters IV Catheter Type (from Nrsg): Saline Lock Assessment/Plan Assessment/Plan (1) Hip pain Status: Acute Comment: Patient unable to bear weight on left leg due to ileopsoas tendon tear and other tendinosis . Will check with Orthopedic regarding treatment options. Continue to adjust pain meds since patient does not like morphine but excessive tylenol is not an option due to his liver inflammation, trial of oxycodone without acetaminophen. (2) Acute hepatitis Status: Acute Comment: Hepatitis titers negative so far, liver normal on ct scan, levels improving gradually so elevated liver enzymes may be due to medications. Most l ikely because patient has been taking excessive acetaminophen for his hip pain, but patient had recent adjustment in cardizem and metoprolol which may impact liver also. (3) Bradycardia Status: Chronic Comment: Improving gradually with metoprolol on hold . Patient was taking lower dose of metoprolol at home , may restart at 25mg if bp keeps coming up. (4) Hypertension Status: Chronic Comment: Patient was taking lower dose of metoprolol at home , may restart at 25mg if bp keeps coming up. May need to reduce cardizem dose if bradycardia recurs. Patient cannot take ACEI or ARB due to hyperkalemia and renal disease. (5) Pneumonia Status: Resolved Comment: No acute pneumonia on Chest CT , low wbc suggest viral infection, antibiotics discontinued. 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 (7) Peripheral edema Status: Chronic Comment: Stable on Lasix 40mg (8) Prostate cancer Status: Chronic (9) Chronic renal disease Status: Chronic Result Diagram: 12/11/18 0430 12/11/18 1144 Results 24hrs Laboratory Tests Test 12/10/18 18:02 12/11/18 04:30 12/11/18 08:09 12/11/18 11:44 Bedside Glucose 141 159 White Blood Count 4.6 L Red Blood Count 4.23 L Hemoglobin 12.6 L Hematocrit 38.0 L Mean Corpuscular 89.8 Volume Mean Corpuscular 29.8 Hemoglobin Mean Corpuscular 33.2 Hemoglobin Concent Red Cell 14.0 Distribution Width Platelet Count 141 Mean Platelet Volume 11.3 H Immature 0.400 Granulocytes % Neutrophils % 48.5 Lymphocytes % 33.0 Monocytes % 10.9 Eosinophils % 6.3 Basophils % 0.9 Nucleated Red Blood 0.0 Cells % Immature 0.020 Granulocytes # Neutrophils # 2.2 Lymphocytes # 1.5 Monocytes # 0.5 Eosinophils # 0.3 Basophils # 0.0 Nucleated Red Blood 0.0 Cells # Sodium Level 141 Potassium Level 5.6 H 4.9 Chloride Level 104 Carbon Dioxide Level 31 Anion Gap 6 Blood Urea Nitrogen 36 H Creatinine 2.14 H Est Glomerular Filtrat Rate mL/min Glucose Level 100 Calcium Level 9.6 Total Bilirubin 0.3 Direct Bilirubin 0.00 Indirect Bilirubin 0.3 Aspartate Amino 68 H Transf (AST/SGOT) Alanine 109 H Aminotransferase (AL T/SGPT) Alkaline Phosphatase 116 Total Protein 7.0 Albumin 3.8 Globulin 3.20 Albumin/Globulin 1.18 Ratio Exam/Review of Systems Exam Vitals Vital Signs Date Temp Pulse Resp B/P (MAP) Pulse Ox O2 O2 Flow FiO2 Time Delivery Rate 12/11/18 98.2 66 18 110/58 95 Room Air 13:55 (75) 12/10/18 2.0 20:00 Intake and Output 12/10/18 12/10/18 12/11/18 1515:00 23:00 07:00 IntakeIntake Total 1600 ml 240 ml 600 ml OutputOutput Total 300 ml 150 ml BalanceBalance 1300 ml 240 ml 450 ml Results Results 24hrs Laboratory Tests Test 12/10/18 18:02 12/11/18 04:30 12/11/18 08:09 12/11/18 11:44 Bedside Glucose 141 159 White Blood Count 4.6 L Red Blood Count 4.23 L Hemoglobin 12.6 L Hematocrit 38.0 L Mean Corpuscular 89.8 Volume Mean Corpuscular 29.8 Hemoglobin Mean Corpuscular 33.2 Hemoglobin Concent Red Cell 14.0 Distribution Width Platelet Count 141 Mean Platelet Volume 11.3 H Immature 0.400 Granulocytes % Neutrophils % 48.5 Lymphocytes % 33.0 Monocytes % 10.9 Eosinophils % 6.3 Basophils % 0.9 Nucleated Red Blood 0.0 Cells % Immature 0.020 Granulocytes # Neutrophils # 2.2 Lymphocytes # 1.5 Monocytes # 0.5 Eosinophils # 0.3 Basophils # 0.0 Nucleated Red Blood 0.0 Cells # Sodium Level 141 Potassium Level 5.6 H 4.9 Chloride Level 104 Carbon Dioxide Level 31 Anion Gap 6 Blood Urea Nitrogen 36 H Creatinine 2.14 H Est Glomerular Filtrat Rate mL/min Glucose Level 100 Calcium Level 9.6 Total Bilirubin 0.3 Direct Bilirubin 0.00 Indirect Bilirubin 0.3 Aspartate Amino 68 H Transf (AST/SGOT) Alanine 109 H Aminotransferase (AL T/SGPT) Alkaline Phosphatase 116 Total Protein 7.0 Albumin 3.8 Globulin 3.20 Albumin/Globulin 1.18 Ratio Medications Medication Current Medications Allopurinol (Zyloprim) 100 mg DAILY PO Last administered on 12/11/18 08:12; Admin Dose 100 MG; Start 12/09/18 at 09:00 Aspirin (Halfprin) 81 mg DAILY PO Last administered on 12/11/18 08:12; Admin Dose 81 MG; Start 12/09/18 at 09:00 Diltiazem HCl (Cardizem Cd) 180 mg DAILY PO Last administered on 12/11/18 0 8:13; Admin Dose 180 MG; Start 12/09/18 at 09:00 Furosemide (Lasix) 40 mg DAILY PO Last administered on 12/11/18 08:13; Admin Dose 40 MG; Start 12/09/18 at 09:00 Gabapentin (Neurontin) 300 mg BID PO Last administered on 12/11/18 08:12; Admin Dose 300 MG; Start 12/08/18 at 22:30 Insulin Aspart Prota 70%/Aspart 30% (Novolog Mix (70/ 30) Flexpen) 40 unit WITH DINNER SC Last administered on 12/10/18 18:05; Admin Dose 40 UNIT; Start 12/09/18 at 18:00 Insulin Aspart Prota 70%/Aspart 30% (Novolog Mix (70/ 30) Flexpen) 60 unit WITH BREAKFAST SC Last administered on 12/11/18 08:11; Admin Dose 60 UNIT; Start 12/09/18 at 08:00 Isosorbide Mononitrate (Imdur) 30 mg DAILY PO Last administered on 12/11/18 08:13; Admin Dose 30 MG; Start 12/09/18 at 09:00 Pantoprazole (Protonix Tab) 40 mg AC BREAKFAST PO Last administered on 12/11/18 06:22; Admin Dose 40 MG; Start 12/09/18 at 07:00 Pramipexole (Mirapex) 0.5 mg BID PO Last administered on 12/11/18 08:12; Admin Dose 0.5 MG; Start 12/08/18 at 22:30 Tamsulosin HCl (Flomax) 0.4 mg QHS PO Last administered on 12/10/18 21:19; Admin Dose 0.4 MG; Start 12/08/18 at 23:03 Atorvastatin Calcium (Lipitor) 10 mg DAILY@21 PO Last administered on 12/10/18 21:19; Admin Dose 10 MG; Start 12/09/18 at 21:00 Escitalopram Oxalate (Lexapro) 10 mg DAILY PO Last administered on 12/11/18 08:12; Admin Dose 10 MG; Start 12/09/18 at 09:00 Dorzolamide/ Timolol (Cosopt Pf Eye Drops) 1 drop BID BOTH EYES Last administered on 12/11/18 08:12; Admin Dose 1 DROP; Start 12/08/18 at 23:01 Non-Formulary Medication 1 ea Q8 BOTH EYES Last administered on 12/11/18 14:27; Admin Dose 1 EA; Start 12/09/18 at 10:00 Vitamin B Complex/ Vitamin C (Berocca) 1 cap DAILY PO Last administered on 12/11/18 08:12; Admin Dose 1 CAP; Start 12/09/18 at 13:00 Erythromycin (Erythromycin Oph Oint) 1 applic DAILY RIGHT EYE Last administered on 12/11/18 08:14; Admin Dose 1 APPLIC; Start 12/09/18 at 18:17 Acetaminophen (Tylenol Tab) 650 mg Q6H PRN PO MILD PAIN(1-3)OR ELEVATED TEMP Last administered on 12/10/18 15:19; Admin Dose 650 MG; Start 12/09/18 at 23:30 Morphine Sulfate (morphine) 3 mg Q4H PRN IV SEVERE PAIN LEVEL 7-10 Last administered on 12/11/18 09:45; Admin Dose 3 MG; Start 12/11/18 at 01:00 Ondansetron HCl (Zofran Inj) 2 mg Q6H PRN IV NAUSEA AND/OR VOMITING; Start 12/11/18 at 11:00 ANJEL GALLEGOS MD Dec 11, 2018 16:47
[2018-12-11] MEDS: ONDANSETRON 4 MG INJ IV PRN (17:11)
[2018-12-11 19:18] VITALS: BP 126/63; PULSE 71; RESP 18
[2018-12-11] MEDS: TAMSULOSIN (SR) 0.4 MG CAP PO SCH (21:31)
[2018-12-11] MEDS: ATORVASTATIN 10 MG TAB PO SCH (21:31)
[2018-12-11] MEDS: oxyCODONE 5 MG TAB PO SCH (21:32)
[2018-12-12 01:36] VITALS: BP 137/69; PULSE 56; RESP 16
[2018-12-12] MEDS: ONDANSETRON 4 MG INJ IV PRN (04:36)
[2018-12-12] MEDS: PANTOPRAZOLE (EC) 40 MG TAB PO SCH (06:08)
[2018-12-12] MEDS: ALPHAGAN P 0.1% BOTH EYES SCH ×3 (06:09→21:01)
[2018-12-12 07:29] VITALS: BP 171/84; PULSE 61; RESP 18
[2018-12-12] MEDS: DILTIAZEM (CD) 180 MG CAP PO SCH (08:14)
[2018-12-12] MEDS: ESCITALOPRAM 10 MG TAB PO SCH (08:14)
[2018-12-12] MEDS: ISOSORBIDE MONONITRATE(SR)30 MG TAB PO SCH (08:14)
[2018-12-12] MEDS: GABAPENTIN 300 MG CAP PO SCH ×2 (08:14→20:48)
[2018-12-12] MEDS: ALLOPURINOL 100 MG TAB PO SCH (08:14)
[2018-12-12] MEDS: FUROSEMIDE 40 MG TAB PO SCH (08:15)
[2018-12-12] MEDS: oxyCODONE 5 MG TAB PO SCH ×2 (08:15→20:49)
[2018-12-12] MEDS: DORZOLAMIDE/TIMOLOL/PF 0.2 ML DROPERETTE BOTH EYES SCH ×2 (08:15→20:48)
[2018-12-12] MEDS: PRAMIPEXOLE 0.25 MG TAB PO SCH ×2 (08:16→20:49)
[2018-12-12] MEDS: ASPIRIN (EC) 81 MG TAB PO SCH (08:16)
[2018-12-12] MEDS: VITAMIN B COMPLEX/VIT C CAP PO SCH (08:16)
[2018-12-12] MEDS: ERYTHROMYCIN 1 GM OPH OINT RIGHT EYE SCH (08:17)
[2018-12-12] MEDS: INSULIN ASP PROT/ASPART (70/30) PEN SC SCH ×2 (08:37→17:07)
[2018-12-12 14:04] VITALS: BP 139/60; PULSE 56; RESP 18
[2018-12-12] MEDS ORDERED: NA POLYST SULFON 15 GM/60 ML BTL PO ONE (17:30)
--- NOTE | 2018-12-12 18:19 | PN ---
Date/Time of Note Date/Time of Note DATE: 12/12/18 TIME: 17:47 Assessment/Plan VTE Prophylaxis Risk score (from Ns)>0 risk: 3 SCD applied (from Ns): No SCD contraindicated: patient refusal, other (leg pain) Pharmacological prophylaxis: NA/contraindicated Pharm contraindication: renal impairment Lines/Catheters IV Catheter Type (from Nrs): Saline Lock Assessment/Plan Problems: (1) Hyperkalemia Status: Acute Comment: Give one dose of kayexalate today, zeenat k in am. (2) Hip pain Status: Acute Comment: Due to ileopsoas tendon tear but patient is not a surgical candidate at this time. Will allow time for healing and start physical therapy when pain resolves. Qualifiers: Laterality: unspecified laterality Qualified Codes: M25.559 - Pain in unspecified hip (3) Eye pain Status: Acute Comment: due to glaucoma. Anticipate discharge to home tomorrow for eye surgery later this week. Qualifiers: Laterality: right Qualified Codes: H57.11 - Ocular pain, right eye (4) Chronic renal disease Status: Chronic Comment: stable BUN/Cr. (5) Acute hepatitis Status: Acute Comment: LFT's improved. Patient instructed to lessen Tylenol use. (6) Hypertension Status: Chronic Comment: Patient gets bradycardic when taking cardizem 180mg combined with metoprolol. Will hold metoprolol for now and monitor bp and heart rate on cardizem. (7) Prostate cancer Status: Chronic Comment: Patient will follow up with Dr. Deluna after acute eye and hip problems have resolved. (8) Depression Status: Chronic Comment: stable on meds. Result Diagram: 12/12/18 1550 12/12/18 1550 Results 24hrs Laboratory Tests Test 12/11/18 18:03 12/12/18 04:30 12/12/18 08:32 12/12/18 15:50 Bedside Glucose 189 133 Sodium Level 140 138 Potassium Level 5.6 H 5.7 H Chloride Level 102 99 Carbon Dioxide Level 30 30 Anion Gap 8 9 Blood Urea Nitrogen 36 H Creatinine 1.97 H Est Glomerular Filtrat Rate mL/min Glucose Level 94 Calcium Level 9.7 Total Bilirubin 0.4 Direct Bilirubin 0.00 Indirect Bilirubin 0.4 Aspartate Amino 57 H Transf (AST/SGOT) Alanine 87 H Aminotransferase (AL T/SGPT) Alkaline Phosphatase 108 Total Protein 7.9 Albumin 3.9 Globulin 4.00 H Albumin/Globulin 0.97 Ratio White Blood Count 4.8 Red Blood Count 4.32 L Hemoglobin 12.9 L Hematocrit 38.9 L Mean Corpuscular 90.0 Volume Mean Corpuscular 29.9 Hemoglobin Mean Corpuscular 33.2 Hemoglobin Concent Red Cell 14.0 Distribution Width Platelet Count 160 Mean Platelet Volume 11.1 H Immature 0.400 Granulocytes % Neutrophils % 54.5 Lymphocytes % 30.0 Monocytes % 8.4 Eosinophils % 6.1 Basophils % 0.6 Nucleated Red Blood 0.0 Cells % Immature 0.020 Granulocytes # Neutrophils # 2.6 Lymphocytes # 1.4 Monocytes # 0.4 Eosinophils # 0.3 Basophils # 0.0 Nucleated Red Blood 0.0 Cells # Test 12/12/18 17:05 Bedside Glucose 226 H Subjective 24 Hr Interval Summary Free Text/Dictation Patient reports less hip pain today, but still with right eye pain. Exam/Review of Systems Exam Vitals Vital Signs Date Temp Pulse Resp B/P (MAP) Pulse Ox O2 O2 Flow FiO2 Time Delivery Rate 12/12/18 98.0 56 18 139/60 100 14:04 (86) 12/11/18 Nasal 2.0 20:20 Cannula Intake and Output 12/11/18 12/11/18 12/12/18 1515:00 23:00 07:00 IntakeIntake Total 720 ml 325 ml 500 ml OutputOutput Total 220 ml 400 ml BalanceBalance 720 ml 105 ml 100 ml Constitutional: alert Psych: no complaints Head: normocephalic, atraumatic Respiratory: clear to auscultation, normal air movement Cardiovascular: regular rate and rhythm Gastrointestinal: soft, non-tender Musculoskeletal: nl extremities to inspection Results Results 24hrs Laboratory Tests Test 12/11/18 18:03 12/12/18 04:30 12/12/18 08:32 12/12/18 15:50 Bedside Glucose 189 133 Sodium Level 140 138 Potassium Level 5.6 H 5.7 H Chloride Level 102 99 Carbon Dioxide Level 30 30 Anion Gap 8 9 Blood Urea Nitrogen 36 H Creatinine 1.97 H Est Glomerular Filtrat Rate mL/min Glucose Level 94 Calcium Level 9.7 Total Bilirubin 0.4 Direct Bilirubin 0.00 Indirect Bilirubin 0.4 Aspartate Amino 57 H Transf (AST/SGOT) Alanine 87 H Aminotransferase (AL T/SGPT) Alkaline Phosphatase 108 Total Protein 7.9 Albumin 3.9 Globulin 4.00 H Albumin/Globulin 0.97 Ratio White Blood Count 4.8 Red Blood Count 4.32 L Hemoglobin 12.9 L Hematocrit 38.9 L Mean Corpuscular 90.0 Volume Mean Corpuscular 29.9 Hemoglobin Mean Corpuscular 33.2 Hemoglobin Concent Red Cell 14.0 Distribution Width Platelet Count 160 Mean Platelet Volume 11.1 H Immature 0.400 Granulocytes % Neutrophils % 54.5 Lymphocytes % 30.0 Monocytes % 8.4 Eosinophils % 6.1 Basophils % 0.6 Nucleated Red Blood 0.0 Cells % Immature 0.020 Granulocytes # Neutrophils # 2.6 Lymphocytes # 1.4 Monocytes # 0.4 Eosinophils # 0.3 Basophils # 0.0 Nucleated Red Blood 0.0 Cells # Test 12/12/18 17:05 Bedside Glucose 226 H Medications Medication Current Medications Allopurinol (Zyloprim) 100 mg DAILY PO Last administered on 12/12/18 08:14; Admin Dose 100 MG; Start 12/09/18 at 09:00 Aspirin (Halfprin) 81 mg DAILY PO Last administered on 12/12/18 08:16; Admin Dose 81 MG; Start 12/09/18 at 09:00 Diltiazem HCl (Cardizem Cd) 180 mg DAILY PO Last administered on 12/12/18 08:14; Admin Dose 180 MG; Start 12/09/18 at 09:00 Furosemide (Lasix) 40 mg DAILY PO Last administered on 12/12/18 08:15; Admin Dose 40 MG; Start 12/09/18 at 09:00 Gabapentin (Neurontin) 300 mg BID PO Last administered on 12/12/18 08:14; Admin Dose 300 MG; Start 12/08/18 at 22:30 Insulin Aspart Prota 70%/Aspart 30% (Novolog Mix (70/ 30) Flexpen) 40 unit WITH DINNER SC Last administered on 12/12/18 17:07; Admin Dose 40 UNIT; Start 12/09/18 at 18:00 Insulin Aspart Prota 70%/Aspart 30% (Novolog Mix (70/ 30) Flexpen) 60 unit WITH BREAKFAST SC Last administered on 12/12/18 08:37; Admin Dose 60 UNIT; Start 12/09/18 at 08:00 Isosorbide Mononitrate (Imdur) 30 mg DAILY PO Last administered on 12/12/18 08:14; Admin Dose 30 MG; Start 12/09/18 at 09:00 Pantoprazole (Protonix Tab) 40 mg AC BREAKFAST PO Last administered on 12/12/18 06:08; Admin Dose 40 MG; Start 12/09/18 at 07:00 Pramipexole (Mirapex) 0.5 mg BID PO Last administered on 12/12/18 08:16; Admin Dose 0.5 MG; Start 12/08/18 at 22:30 Tamsulosin HCl (Flomax) 0.4 mg QHS PO Last administered on 12/11/18 21:31; Admin Dose 0.4 MG; Start 12/08/18 at 23:03 Atorvastatin Calcium (Lipitor) 10 mg DAILY@21 PO Last administered on 12/11/18 21:31; Admin Dose 10 MG; Start 12/09/18 at 21:00 Escitalopram Oxalate (Lexapro) 10 mg DAILY PO Last administered on 12/12/18 08:14; Admin Dose 10 MG; Start 12/09/18 at 09:00 Dorzolamide/ Timolol (Cosopt Pf Eye Drops) 1 drop BID BOTH EYES Last administered on 12/12/18 08:15; Admin Dose 1 DROP; Start 12/08/18 at 23:01 Non-Formulary Medication 1 ea Q8 BOTH EYES Last administered on 12/12/18 14:11; Admin Dose 1 EA; Start 12/09/18 at 10:00 Vitamin B Complex/ Vitamin C (Berocca) 1 cap DAILY PO Last administered on 12/12/18 08:16; Admin Dose 1 CAP; Start 12/09/18 at 13:00 Erythromycin (Erythromycin Oph Oint) 1 applic DAILY RIGHT EYE Last administered on 12/12/18 08:17; Admin Dose 1 APPLIC; Start 12/09/18 at 18:17 Acetaminophen (Tylenol Tab) 650 mg Q6H PRN PO MILD PAIN(1-3)OR ELEVATED TEMP Last administered on 12/10/18 15:19; Admin Dose 650 MG; Start 12/09/18 at 23:30 Morphine Sulfate (morphine) 3 mg Q4H PRN IV SEVERE PAIN LEVEL 7-10 Last administered on 12/11/18at 09:45; Admin Dose 3 MG; Start 12/11/18 at 01:00 Ondansetron HCl (Zofran Inj) 2 mg Q6H PRN IV NAUSEA AND/OR VOMITING Last administered on 12/12/18 04:36; Admin Dose 2 MG; Start 12/11/18 at 11:00 Oxycodone HCl (Roxicodone) 10 mg BID PO Last administered on 12/12/18at 08:15; Admin Dose 10 MG; Start 12/11/18 at 21:00 ANJEL GALLEGOS MD Dec 12, 2018 17:58
[2018-12-12] MEDS ORDERED: SODIUM POLYSTYRENE 15 GM KIT (POWDER + SORBITOL) PO SCH (19:04)
[2018-12-12 20:00] VITALS: BP 133/65; PULSE 60; RESP 18
[2018-12-12] MEDS: TAMSULOSIN (SR) 0.4 MG CAP PO SCH (20:48)
[2018-12-12] MEDS: ATORVASTATIN 10 MG TAB PO SCH (20:48)
[2018-12-13 02:00] VITALS: BP 125/66; PULSE 52; RESP 18
[2018-12-13] MEDS: PANTOPRAZOLE (EC) 40 MG TAB PO SCH (06:00)
[2018-12-13] MEDS: ALPHAGAN P 0.1% BOTH EYES SCH (06:00)
[2018-12-13 07:45] VITALS: BP 171/79; PULSE 58; RESP 18
[2018-12-13] MEDS: INSULIN ASP PROT/ASPART (70/30) PEN SC SCH (08:00)
[2018-12-13 08:30] VITALS: BP 180/83; PULSE 55
[2018-12-13] MEDS: ONDANSETRON 4 MG INJ IV PRN (08:46)
[2018-12-13] MEDS: ASPIRIN (EC) 81 MG TAB PO SCH (09:00)
[2018-12-13] MEDS ORDERED: NIFEdipine (XL) 60 MG TAB PO SCH ×2 (09:00→09:30)
[2018-12-13] MEDS: DORZOLAMIDE/TIMOLOL/PF 0.2 ML DROPERETTE BOTH EYES SCH (09:15)
[2018-12-13] MEDS: ISOSORBIDE MONONITRATE(SR)30 MG TAB PO SCH (09:15)
[2018-12-13] MEDS: VITAMIN B COMPLEX/VIT C CAP PO SCH (09:15)
[2018-12-13] MEDS: GABAPENTIN 300 MG CAP PO SCH (09:16)
[2018-12-13] MEDS: ALLOPURINOL 100 MG TAB PO SCH (09:16)
[2018-12-13] MEDS: PRAMIPEXOLE 0.25 MG TAB PO SCH (09:16)
[2018-12-13] MEDS: FUROSEMIDE 40 MG TAB PO SCH (09:16)
[2018-12-13] MEDS: ESCITALOPRAM 10 MG TAB PO SCH (09:16)
[2018-12-13] MEDS: oxyCODONE 5 MG TAB PO SCH (09:16)
[2018-12-13] MEDS: ERYTHROMYCIN 1 GM OPH OINT RIGHT EYE SCH (09:18)
[2018-12-13 09:19] VITALS: BP 169/81; PULSE 53
[2018-12-13 10:51] VITALS: BP 167/78; PULSE 59
[2018-12-13] MEDS ORDERED: SODIUM POLYSTYRENE 15 GM KIT (POWDER + SORBITOL) PO SCH (11:30)
== END 2018-12-13 12:48 | disposition home health service (06) | DRG 194 ==
LOC: E/R 14:32 → PP2 17:01 → 2NE 22:48
PROVIDERS: ADMIT Internal Medicine; ATTEND Internal Medicine
DX: J18.9 Pneumonia, unspecified organism (principal); B17.9 Acute viral hepatitis, unspecified; C61 Malignant neoplasm of prostate; I12.9 Hypertensive chronic kidney disease with stage 1 through stage 4 chronic kidney disease, or unspecified chronic kidney disease; N18.9 Chronic kidney disease, unspecified; M66.88 Spontaneous rupture of other tendons, other sites; M76.12 Psoas tendinitis, left hip; H57.10 Ocular pain, unspecified eye; R00.1 Bradycardia, unspecified; E87.5 Hyperkalemia; F32.9 Major depressive disorder, single episode, unspecified
CPT/HCPCS: 71045; 71250; 73700; 73721; 74176; 80048; 80051; 80053; 81001; 82150; 82962; 82977; 83690; 83880; 84132; 84484; 85025; 85610; 85730; 86704; 86709; 86803; 87086; 87340; 93005; 93971; J0692; J1817; J2060; J2270; J2405; J3370

== ENCOUNTER 2019-05-10 18:53 | Observation (INO) | payer MEDICARE, BC ==
[~2019-05-10] VITALS: Ht 165.1 cm; Wt 92.3 kg
[~2019-05-10 18:53] MED LIST changes: +ALLO100T PO; -ALLO100T64 PO; -ARIP5TAB14 PO; -ASPI-831 PO; +ASPI325T32 PO; +BRIM15DR2 BOTH EYES; -CARV6.2579 PO; -CITA20TA11 PO; +CITA20TA8 PO; +DILT180C94 PO; +DONE5TAB46 PO; -DONE5TAB53 PO; +DORZ10DR6 BOTH EYES; +ERYT1OIN6 OP; +FURO-110 PO; -HYDR-3609 PO; +HYDR-3980 PO; -ISOS30TA PO; +ISOS30TA67 PO; +METO100T11 PO; -NOV70303I SC; +NOVMIX SC; +OXYB10TA6 PO; +PANT40TA4 PO; -VIT-3 ORAL; +VIT-3 PO
[2019-05-10] MEDS ORDERED: SODIUM CHLORIDE 0.9% 1L BAG IV* STA (19:20)
[2019-05-10] MEDS ORDERED: ONDANSETRON 4 MG INJ IV STA (19:51)
[2019-05-10] MEDS ORDERED: morphine 4 MG/ML VIAL IV STA (19:51)
[2019-05-10] MEDS ORDERED: morphine 2 MG INJ IV STA (20:29)
[2019-05-10] MEDS ORDERED: ONDANSETRON 4 MG INJ IV PRN (20:30)
[2019-05-10] MEDS ORDERED: ACETAMINOPHEN 325 MG TAB PO PRN (20:30)
[2019-05-10 23:59] VITALS: BP 152/74; PULSE 71; RESP 17
[2019-05-11] MEDS ORDERED: traMADol 50 MG TAB PO PRN (00:30)
[2019-05-11 00:39] VITALS: Ht 165.1 cm; Wt 92.3 kg
[2019-05-11] MEDS ORDERED: GLUCOSE GEL 15 GRAM TUBE BUCCAL PRN (01:00)
[2019-05-11] MEDS ORDERED: GLUCOSE GEL 15 GRAM TUBE PO PRN ×2 (01:00)
[2019-05-11] MEDS ORDERED: GLUCAGON 1 MG INJ IM PRN (01:00)
[2019-05-11] MEDS ORDERED: DEXTROSE 50% 50 ML SYRINGE IV PRN ×2 (01:00)
[2019-05-11] MEDS ORDERED: ACCUCHECK AT 2AM (Patients on SS coverage) XX SCH (02:00)
[2019-05-11 02:06] VITALS: BP 166/82; PULSE 70; RESP 18
[2019-05-11] MEDS ORDERED: BRIMONIDINE TARTRATE BOTH EYES SCH (06:00)
[2019-05-11] MEDS ORDERED: PANTOPRAZOLE (EC) 40 MG TAB PO SCH (07:05)
[2019-05-11 08:16] VITALS: BP 158/86; PULSE 73; RESP 19
[2019-05-11] MEDS: INSULIN ASPART [NOVOLOG] 3 ML PEN SC SCH ×3 (08:38→17:10)
[2019-05-11] MEDS ORDERED: GABAPENTIN 300 MG CAP PO SCH (09:00)
[2019-05-11] MEDS ORDERED: DORZOLAMIDE/TIMOLOL 10 ML OPH BOTH EYES SCH (09:00)
[2019-05-11] MEDS ORDERED: CITALOPRAM 20 MG TAB PO SCH (09:00)
[2019-05-11] MEDS ORDERED: ASPIRIN (EC) 81 MG TAB PO SCH (09:00)
[2019-05-11] MEDS ORDERED: DONEPEZIL 5 MG TAB PO SCH (09:00)
[2019-05-11] MEDS ORDERED: PRAMIPEXOLE 0.25 MG TAB PO SCH (09:00)
[2019-05-11] MEDS ORDERED: ASPIRIN (EC) 325 MG TAB PO SCH (09:00)
[2019-05-11] MEDS ORDERED: ISOSORBIDE MONONITRATE(SR)30 MG TAB PO SCH (09:00)
[2019-05-11] MEDS ORDERED: ALLOPURINOL 100 MG TAB PO SCH (09:00)
[2019-05-11] MEDS ORDERED: BIOTIN PO SCH (09:00)
[2019-05-11] MEDS ORDERED: VIT B CMPLX PO SCH (09:00)
[2019-05-11] MEDS ORDERED: FUROSEMIDE 20 MG TAB PO SCH (09:00)
[2019-05-11] MEDS ORDERED: MULTIVIT/CA CARB/B CMPLX/FA TAB PO SCH (09:00)
[2019-05-11] MEDS ORDERED: DILTIAZEM (CD) 180 MG CAP PO SCH (09:00)
[2019-05-11] MEDS ORDERED: [UNRECOGNIZED DRUG - OTHER] PO SCH (09:00)
[2019-05-11 14:40] VITALS: BP 130/65; PULSE 65; RESP 18
[2019-05-11] MEDS ORDERED: ATORVASTATIN 10 MG TAB PO SCH (21:00)
[2019-05-11] MEDS ORDERED: TAMSULOSIN (SR) 0.4 MG CAP PO SCH (21:00)
[2019-05-11] MEDS ORDERED: NON-FORMULARY/PATIENT OWN MED (Simvastatin* (Zocor*) 20 MG) PO SCH (21:00)
== END 2019-05-11 18:10 | disposition home health service (06) ==
LOC: E/R 18:53 → MS3 20:26
PROVIDERS: ADMIT Internal Medicine; ATTEND Internal Medicine
DX: E11.65 Type 2 diabetes mellitus with hyperglycemia (principal); I11.0 Hypertensive heart disease with heart failure; I50.9 Heart failure, unspecified; E11.40 Type 2 diabetes mellitus with diabetic neuropathy, unspecified; F32.9 Major depressive disorder, single episode, unspecified; R31.9 Hematuria, unspecified; C61 Malignant neoplasm of prostate; E78.5 Hyperlipidemia, unspecified; E79.0 Hyperuricemia without signs of inflammatory arthritis and tophaceous disease; Z79.82 Long term (current) use of aspirin; Z79.4 Long term (current) use of insulin; Z89.422 Acquired absence of other left toe(s)
CPT/HCPCS: 36415; 71045; 80053; 81001; 82962; 83036; 83605; 83735; 84100; 84484; 85025; 85610; 85730; 87040; 87086; 93005; 99285; G0378; J1815; J2270; J2405; J7030; 96372